=== PATIENT | female | born 1935 | race Caucasian/White ===

== ENCOUNTER 2016-06-06 07:00 | Emergency (ER) | payer MEDICARE, MEDICAID ==
[2016-06-06 08:13] VITALS: BP 140/56
[2016-06-06] MEDS ORDERED: Sodium Chloride 0.9% 1,000 ML IV STA (08:14)
[2016-06-06] MEDS ORDERED: Sodium Chloride 0.9% 5 ML Syringe FLUSH PRN (08:14)
--- NOTE | 2016-06-06 08:30 | EDM.PDOC ---
ED HPI GI/ABDOMINAL - General Chief Complaint: Abdominal Pain Stated Complaint: abd distention Time Seen by Provider: 06/06/16 07:50 Source of Information: Reports: [facility] records History Limitations: Reports: Altered mental status (OF CHRONIC NATURE) - History of Present Illness INITIAL COMMENTS - FREE TEXT/NARRATIVE: PER EMS AND CORRECTION RECORDS, PT HAS HAD ABD PAIN AND DISTENSION FOR 2 DAYS. NO VOMITING, BOWEL CHANGES, OR BLOOD IN STOOL. PT HAS CHRONIC CONFUSED STATE AND UNABLE TO VERBALIZE CONDITION Location: generalized Severity: mild Associated Symptoms (-Female): Reports: denies other symptoms - Related Data Allergies/ADRs: Allergies Allergy/AdvReac Type Severity Reaction Status Date / Time INDU Inhibitors Allergy Cannot Verified 06/06/16 08:18 Remember grapefruit Allergy Cannot Verified 06/06/16 08:18 Remember Home Meds: Home Meds Acetaminophen 325 mg PO BID 10/22/14 [History] Acetaminophen [Pain Relief] 650 mg PO Q6H PRN 10/22/14 [History] Bisacodyl [Dulcolax] 10 mg RECTAL DAILY PRN 10/22/14 [History] Cholecalciferol (Vitamin D3) [Vitamin D3] 2,000 unit PO DAILY 10/22/14 [History] Donepezil HCl 10 mg PO DAILY 10/22/14 [History] Magnesium Hydroxide [Milk of Magnesia] 30 ml PO DAILY PRN 10/22/14 [History] Aspirin 1 tab PO DAILY 06/06/16 [History] Loratadine 10 mg PO DAILY 06/06/16 [History] Menthol/Camphor [Sarna Anti-Itch] 1 applic TOP BID 06/06/16 [History] Sennosides [Senna] 1 tab PO BID 06/06/16 [History] Past Medical History Other Musculoskeletal History: muscle weakness (myasthenia) Social & Family History - Tobacco Use Smoking Status *Q: Current Status Unknown Second Hand Smoke Exposure: No - Recreational Drug Use Recreational Drug Use: No ED ROS GENERAL - Review of Systems Review Of Systems: ROS reveals no pertinent complaints other than HPI. Constitutional: Reports: no symptoms HEENT: Reports: No symptoms Respiratory: Reports: No Symptoms Cardiovascular: Reports: No symptoms Endocrine: Reports: no symptoms GI/Abdominal: Reports: Abdominal pain, Distension : Reports: no symptoms Musculoskeletal: Reports: no symptoms Skin: Reports: no symptoms Neurological: Reports: Confusion (OF CHRONIC NATURE), Pre-Existing Deficit Psychiatric: Reports: No symptoms Hematologic/Lymphatic: Reports: no symptoms Immunologic: Reports: no symptoms ED EXAM, GI/ABD - Physical Exam Exam: See Below Exam Limited By: Altered mental status (CHRONIC) General Appearance: alert, WD/WN, no apparent distress Eyes: bilateral: normal appearance Throat/Mouth: Normal inspection, Normal oropharynx, No airway compromise Head: atraumatic, normocephalic Respiratory/Chest: no respiratory distress, lungs clear, normal breath sounds, no accessory muscle use Cardiovascular: regular rate, rhythm, no murmur GI/Abdominal: soft, non tender, no organomegaly, no distention, no abnormal bruit, no mass, hyperactive bowel sounds Back Exam: No: CVA tenderness (L), CVA tenderness (R) Extremities: normal inspection, no pedal edema Neurological: confused, disoriented Psychiatric: flat affect Skin Exam: Warm, Dry, Intact, Normal color, No rash Lymphatic: no adenopathy Course - Vital Signs Last Recorded V/S: Last Vital Signs Temp 98.5 F 06/06/16 08:09 Pulse 76 06/06/16 08:09 Resp 10 L 06/06/16 08:09 BP 140/56 L 06/06/16 08:09 Pulse Ox 95 06/06/16 08:09 - Orders/Labs/Meds Orders: Active Orders 24 hr Category Date Time Status Peripheral IV Care [RC] . DIRECTED Care 06/06/16 08:15 Ordered Abdomen Pelvis w Cont [CT] Stat Exams 06/06/16 08:14 Ordered CBC WITH AUTO DIFF [HEME] Stat Lab 06/06/16 08:14 Ordered COMPREHENSIVE METABOLIC PN,CMP [CHEM] Stat Lab 06/06/16 08:14 Ordered LIPASE [CHEM] Stat Lab 06/06/16 08:14 Ordered UA W/MICROSCOPIC [URIN] Stat Lab 06/06/16 08:14 Uncollected Sodium Chloride 0.9% [Normal Saline] 1,000 ml Med 06/06/16 08:14 Ordered IV .BOLUS Sodium Chloride 0.9% [Syrex Flush] Med 06/06/16 08:14 Ordered 5 ml FLUSH Q8HR PRN Peripheral IV Insertion Adult [OM.PC] Stat Oth 06/06/16 08:14 Ordered Saline Lock Insert [OM.PC] Stat Oth 06/06/16 08:14 Ordered Medication Orders Sodium Chloride (Normal Saline) 1,000 mls @ 1,000 mls/hr IV .BOLUS STA Stop: 06/06/16 09:13 Sodium Chloride (Syrex Flush) 5 ml FLUSH Q8HR PRN PRN Reason: Keep Vein Open Meds: Medications Generic Name Dose Route Start Last Admin Trade Name Freq PRN Reason Stop Dose Admin Sodium Chloride 1,000 mls @ 1,000 mls/hr 06/06/16 08:14 Normal Saline IV 06/06/16 09:13 .BOLUS STA Sodium Chloride 5 ml 06/06/16 08:14 Syrex Flush FLUSH Q8HR PRN Keep Vein Open - Radiology Interpretation Free Text/Narrative:: ct abd/pelvis shows diverticulosis inflammatory changes, WITHOUT VASCULAR COMPROMISE CT Results Date: 06/06/16 - Re-Assessments/Exams Free Text/Narrative Re-Assessment/Exam: 06/06/16 10:27 PT AFEBRILE, NONTOXIC APPEARING, VSS, NO DISCOMFORT. DISCUSSED CASE WITH KASSIE AND SUGGESTED MEDICATION HERE AND F/U AT CLINIC ON Wednesday06/06/16 10:36 CIPRO / FLAGYL / REGLAN MEDICATION AND INSTRUCTIONS SENT WITH PT Departure - Departure Time of Disposition: 10:34 Disposition: DC/Tfer to Medicaid Nur Fac 64 Condition: good Clinical Impression: Colitis Instructions: Colitis Forms: ED Department Discharge Additional Instructions: FOLLOW UP AT [facility] ON WEDNESDAY - My Orders Last 24 Hours: My Active Orders 06/06/16 08:14 Abdomen Pelvis w Cont [CT] Stat CBC WITH AUTO DIFF [HEME] Stat COMPREHENSIVE METABOLIC PN,CMP [CHEM] Stat LIPASE [CHEM] Stat UA W/MICROSCOPIC [URIN] Stat Sodium Chloride 0.9% [Normal Saline] 1,000 ml IV .BOLUS Sodium Chloride 0.9% [Syrex Flush] 5 ml FLUSH Q8HR PRN Peripheral IV Insertion Adult [OM.PC] Stat Saline Lock Insert [OM.PC] Stat 06/06/16 08:15 Peripheral IV Care [RC] . DIRECTED - Assessment/Plan Last 24 Hours: My Active Orders 06/06/16 08:14 Abdomen Pelvis w Cont [CT] Stat CBC WITH AUTO DIFF [HEME] Stat COMPREHENSIVE METABOLIC PN,CMP [CHEM] Stat LIPASE [CHEM] Stat UA W/MICROSCOPIC [URIN] Stat Sodium Chloride 0.9% [Normal Saline] 1,000 ml IV .BOLUS Sodium Chloride 0.9% [Syrex Flush] 5 ml FLUSH Q8HR PRN Peripheral IV Insertion Adult [OM.PC] Stat Saline Lock Insert [OM.PC] Stat 06/06/16 08:15 Peripheral IV Care [RC] . DIRECTED Assessment:: DIVERTICULOSIS Plan: RETURN TO NURSING FACILITY AND F/U AT CLINIC ON WEDNESDAY
[2016-06-06] MEDS ORDERED: Iopamidol 612 MG/ML 75 ML Bottle IV ONE (09:00)
[2016-06-06] MEDS ORDERED: Sodium Chloride 0.9% 50 ML SDV IV ONE (09:00)
[2016-06-06] MEDS ORDERED: Ciprofloxacin 500 MG Tab PO ONE ×2 (10:28→10:34)
[2016-06-06] MEDS ORDERED: metroNIDAZOLE 500 MG Tab PO ONE ×2 (10:28→10:34)
[2016-06-06] MEDS ORDERED: Metoclopramide 10 MG/2 ML SDV IVPUSH ONE (10:28)
[2016-06-06] MEDS ORDERED: Metoclopramide 5 MG Tab PO ONE (10:34)
[2016-06-10] MEDS ORDERED: Iopamidol 612 MG/ML 75 ML Bottle IV ONE (09:07)
[2016-06-10] MEDS ORDERED: Sodium Chloride 0.9% 50 ML SDV FLUSH SCH (09:15)
== END 2016-06-06 11:40 ==
LOC: KA.ED 07:00
DX: K52.9 Noninfective gastroenteritis and colitis, unspecified (principal); Z91.018 Allergy to other foods; Z79.899 Other long term (current) drug therapy; Z79.82 Long term (current) use of aspirin
CPT/HCPCS: 74177; 80053; 81001; 83690; 85025; 87086; 96374; 99285; A9270; J2765; J7030; 99283; Q9967

== ENCOUNTER 2016-07-08 20:05 | Observation (INO) | payer MEDICARE, MEDICAID ==
--- NOTE | 2016-07-08 20:57 | EDM.PDOC ---
ED HPI GENERAL MEDICAL PROBLEM - General Chief Complaint: General Stated Complaint: profuse diarrhea Time Seen by Provider: 07/08/16 20:40 Source of Information: Reports: EMS Notes Reviewed, Long Term Records History Limitations: Reports: Other (PT HAS H/O DEMENTIA AND IS NON- COMMUNICATIVE) - History of Present Illness INITIAL COMMENTS - FREE TEXT/NARRATIVE: PER NURSING FACILITY PT WAS FOUND TO HAVE A DISTENDED ABDOMEN AND GIVEN ENEMA AND MOM THIS MORNING. SYMPTOMS PERSISTED SO EMS WAS CALLED FOR TRANSPORT. PT NON -COMMUNICATIVE BUT NOT DISPLAYING EVIDENCE OF PAIN. Onset: Today, Gradual Onset Date: 07/08/16 Location: Reports: Abdomen Improves with: Reports: None Worsens with: Reports: None Associated Symptoms: Reports: No Other Symptoms - Related Data Allergies Allergy/AdvReac Type Severity Reaction Status Date / Time INDU Inhibitors Allergy Cannot Verified 07/08/16 20:06 Remember grapefruit Allergy Cannot Verified 07/08/16 20:06 Remember Home Meds: Home Meds Acetaminophen 325 mg PO TID 10/22/14 [History] Acetaminophen [Pain Relief] 650 mg PO Q6H PRN 10/22/14 [History] Bisacodyl [Dulcolax] 10 mg RECTAL DAILY PRN 10/22/14 [History] Cholecalciferol (Vitamin D3) [Vitamin D3] 2,000 unit PO DAILY 10/22/14 [History] Donepezil HCl 10 mg PO DAILY 10/22/14 [History] Magnesium Hydroxide [Milk of Magnesia] 30 ml PO DAILY PRN 10/22/14 [History] Aspirin 1 tab PO DAILY 06/06/16 [History] Loratadine 10 mg PO DAILY 06/06/16 [History] Menthol/Camphor [Sarna Anti-Itch] 1 applic TOP BID 06/06/16 [History] Sennosides [Senna] 1 tab PO BID 06/06/16 [History] Past Medical History Gastrointestinal History: Reports: Other (See Below) Other Gastrointestinal History: abdominal pain and distention x 2 days Musculoskeletal History: Reports: Osteoarthritis Other Musculoskeletal History: muscle weakness (myasthenia) Neurological History: Reports: Alzheimers Disease Psychiatric History: Reports: Alzheimers Disease, Dementia Endocrine/Metabolic History: Reports: Diabetes, Type II Social & Family History - Family History Family Medical History: Noncontributory - Tobacco Use Smoking Status *Q: Current Status Unknown Second Hand Smoke Exposure: No - Recreational Drug Use Recreational Drug Use: No ED ROS GENERAL - Review of Systems Review Of Systems: ROS reveals no pertinent complaints other than HPI. Constitutional: Reports: No Symptoms HEENT: Reports: No Symptoms Respiratory: Reports: No Symptoms Cardiovascular: Reports: No Symptoms Endocrine: Reports: No Symptoms GI/Abdominal: Reports: Constipation, Distension : Reports: No Symptoms Musculoskeletal: Reports: No Symptoms Skin: Reports: No Symptoms Neurological: Reports: Confusion (OF CHRONIC NATURE) Psychiatric: Reports: No Symptoms Hematologic/Lymphatic: Reports: No Symptoms Immunologic: Reports: No Symptoms ED EXAM, GENERAL - Physical Exam Exam: See Below Exam Limited By: Other (DEMENTIA) General Appearance: Alert, WD/WN, No Apparent Distress Eye Exam: Bilateral Eye: Normal Inspection Throat/Mouth: Normal Inspection, Normal Oropharynx, No Airway Compromise Head: Atraumatic, Normocephalic Respiratory/Chest: No Respiratory Distress, Lungs Clear, Normal Breath Sounds Cardiovascular: Regular Rate, Rhythm, No Murmur GI/Abdominal: Soft, Distended, Abnormal Bowel Sounds (HYPERACTIVE) Extremities: Normal Inspection Neurological: Alert, Confused (OF CHRONIC NATURE), Disoriented Psychiatric: Flat Affect Skin Exam: Warm, Dry, Intact, Normal Color, No Rash Lymphatic: No Adenopathy Course - Orders/Labs/Meds Orders: Active Orders 24 hr Category Date Time Status KUB [Abdomen 1V Flat] [CR] Stat Exams 07/08/16 20:51 Ordered CBC W/O DIFF,HEMOGRAM [HEME] Stat Lab 07/08/16 20:38 Ordered CMP [COMPREHENSIVE METABOLIC PN,CMP] [CHEM] Stat Lab 07/08/16 20:42 Ordered UA W/MICROSCOPIC [URIN] Stat Lab 07/08/16 20:42 Uncollected Sodium Chloride 0.9% [Syrex Flush] Med 07/08/16 20:43 Active 5 ml FLUSH Q8HR PRN Saline Lock Insert [OM.PC] Routine Oth 07/08/16 20:43 Ordered Medication Orders Sodium Chloride (Syrex Flush) 5 ml FLUSH Q8HR PRN PRN Reason: Keep Vein Open Meds: Medications Generic Name Dose Route Start Last Admin Trade Name Freq PRN Reason Stop Dose Admin Sodium Chloride 5 ml 07/08/16 20:43 Syrex Flush FLUSH Q8HR PRN Keep Vein Open - Re-Assessments/Exams Free Text/Narrative Re-Assessment/Exam: 07/08/16 21:41 PT AFEBRILE, NONTOXIC APPEARING. DISCUSSED CASE WITH DR ANDREWS, WILL ADMIT TO OBS AND FOLLOW Departure - Departure Time of Disposition: 21:42 Disposition: Refer to Observation Condition: fair Clinical Impression: Ileus Constipation Qualifiers: Constipation type: unspecified constipation type Qualified Code(s): K59.00 - Constipation, unspecified - Discharge Information Forms: ED Department Discharge - My Orders Last 24 Hours: My Active Orders 07/08/16 20:38 CBC W/O DIFF,HEMOGRAM [HEME] Stat 07/08/16 20:42 CMP [COMPREHENSIVE METABOLIC PN,CMP] [CHEM] Stat UA W/MICROSCOPIC [URIN] Stat 07/08/16 20:43 Sodium Chloride 0.9% [Syrex Flush] 5 ml FLUSH Q8HR PRN Saline Lock Insert [OM.PC] Routine 07/08/16 20:51 KUB [Abdomen 1V Flat] [CR] Stat - Assessment/Plan Last 24 Hours: My Active Orders 07/08/16 20:38 CBC W/O DIFF,HEMOGRAM [HEME] Stat 07/08/16 20:42 CMP [COMPREHENSIVE METABOLIC PN,CMP] [CHEM] Stat UA W/MICROSCOPIC [URIN] Stat 07/08/16 20:43 Sodium Chloride 0.9% [Syrex Flush] 5 ml FLUSH Q8HR PRN Saline Lock Insert [OM.PC] Routine 07/08/16 20:51 KUB [Abdomen 1V Flat] [CR] Stat Assessment:: ILEUS Plan: ADMIT TO OBS FOR DR ANDREWS
[2016-07-08 21:15] LABS: CHLORIDE,CL 101 mmol/L (98-115); SODIUM,NA 140 mmol/L (136-145)
[2016-07-08] MEDS ORDERED: Sodium Chloride 0.9% 1,000 ML IV ONE (21:40)
[2016-07-08] MEDS: Sodium Chloride 0.9% 5 ML Syringe FLUSH PRN (22:39)
[2016-07-09] MEDS ORDERED: Sodium Phosphate,Monobasic/Sodium Phosphate,Dibasic Enema 133 ML Bottle RECTAL PRN (10:00)
[2016-07-09] MEDS ORDERED: Acetaminophen 325 MG Tab PO PRN ×2 (10:00→12:00)
[2016-07-09] MEDS ORDERED: Bisacodyl 10 MG Supp RECTAL PRN (10:00)
[2016-07-09] MEDS ORDERED: Magnesium Hydroxide 400 MG/5 ML Susp 30 ML Cup PO PRN (10:00)
[2016-07-09] MEDS ORDERED: Sodium Phosphate,Monobasic/Sodium Phosphate,Dibasic Enema 133 ML Bottle RECTAL ONE (10:02)
[2016-07-09] MEDS: Dextrose 5%-0.9% NaCl 1,000 ML IV SCH ×2 (11:18→21:45)
[2016-07-09] MEDS: Sodium Chloride 0.9% 5 ML Syringe FLUSH PRN (11:18)
[2016-07-09] MEDS: Aspirin 81 MG Tab.Chew PO SCH (12:43)
[2016-07-09] MEDS: Metoclopramide 10 MG/2 ML SDV IVPUSH SCH ×3 (12:43→22:53)
[2016-07-09] MEDS: Cholecalciferol (Vitamin D3) 1,000 Unit Tab PO SCH (12:43)
[2016-07-09] MEDS: Donepezil 10 MG Tab PO SCH (12:43)
[2016-07-09] MEDS: Acetaminophen 325 MG Tab PO SCH ×2 (12:54→18:09)
[2016-07-09] MEDS ORDERED: Loratadine 10 MG Tab PO SCH (18:00)
[2016-07-09] MEDS ORDERED: MENTHOL TOP SCH (21:00)
[2016-07-09] MEDS ORDERED: CAMPHOR TOP SCH (21:00)
[2016-07-10] MEDS: Metoclopramide 10 MG/2 ML SDV IVPUSH SCH ×2 (05:26→13:38)
[2016-07-10 05:31] VITALS: BP 141/60
[2016-07-10] MEDS: Dextrose 5%-0.9% NaCl 1,000 ML IV SCH (06:34)
[2016-07-10] MEDS: Acetaminophen 325 MG Tab PO SCH (08:14)
[2016-07-10] MEDS: Donepezil 10 MG Tab PO SCH (08:14)
[2016-07-10] MEDS: Aspirin 81 MG Tab.Chew PO SCH (08:14)
[2016-07-10] MEDS: Cholecalciferol (Vitamin D3) 1,000 Unit Tab PO SCH (08:15)
--- NOTE | 2016-07-10 08:34 | HP ---
PATIENT PROFILE: This is an 81-year-old patient who is a resident of [facility] here in [facility]. Nursing staff at the facility had found the patient to have a distended abdomen. She was given a Fleet enema at the snf along with some milk of magnesia, did not help with her constipation. The patient does have a history of severe dementia and is noncommunicative. Ambulance was called, the patient was transferred to the emergency room for further evaluation and treatment. The patient was displaying no evidence of pain. In the emergency room, she was given IV bolus of normal saline along with a Fleet enema. PAST MEDICAL HISTORY: She has history of severe dementia, some allergies, and chronic constipation. MEDICATIONS: At the snf, she was taking senna one tablet twice a day. She had a Fleet enema ordered as needed. She got some Sarna cream for itching, she could have twice a day. She has milk of magnesia as needed. She takes loratadine 10 mg daily, Aricept 10 mg daily, vitamin D3 at 2000 units daily, Dulcolax suppository as needed, aspirin one tablet daily and Tylenol as needed. ALLERGIES: She is allergic to INDU inhibitors and grape fruit. SOCIAL PERSONAL HISTORY: The patient lives at [facility]. REVIEW OF SYSTEMS: The patient is not communicative, but did not display any signs of pain. No fever. PHYSICAL EXAMINATION: GENERAL: This is an elderly white female, in no acute distress. VITAL SIGNS: On admission, blood pressure is 110/33, pulse was 78, temperature was 98.3, she weighs 169 pounds, respiratory rate was 20, oxygen saturations were 93% on room air. HEENT: Head is normocephalic. EOMs are intact. Nose is clear. No pharyngeal erythema noted. NECK: Supple. No JVD. Trachea is midline. LUNGS: Sounds are clear throughout lung elizalde. CARDIAC: Regular rate and rhythm. No murmurs identified. ABDOMEN: Large, distended, hypoactive bowel sounds, tympanic sounds. EXTREMITIES: Full range of motion. No joint effusions noted. NEUROLOGIC: The patient is noncommunicative, does react to pain. DIAGNOSTIC: The patient did have an abdominal x-ray obtained one-view in the emergency room, which the impression reads per Radiology, there is gaseous distention of the colon with multiple mildly dilated air-filled loops of small bowel, consider generalized ileus. The patient's lab work that was also obtained in the emergency room. CBC showed a white count slightly elevated at 12.0, hemoglobin 12.9. Chemistry panel was unremarkable except for glucose elevated at 176. The patient's GFR is 53, which is the patient's baseline. Urinalysis that was obtained showed trace of blood, some protein, rare bacteria, moderate amount of mucus. IMPRESSION/PLAN: 1. Fecal impaction/ileus. Plan: The patient did receive a Fleet enema in the emergency room. We are going to give her another Fleet enema today. We are going to start the patient on Reglan 10 mg IV every 6 hours. We will continue with senna one tablet twice a day. We will give the patient some IV fluids D5 normal saline at 100 mL/h. The patient has been incontinent of stool with brief in place. 2. Severe dementia, noncommunicative. Plan: continue with Aricept 10 mg daily. 3. History of allergies. Plan: Continue with Claritin 10 mg daily. She does have itchiness to her skin, we will continue with Sarna cream if she displays any signs of itchiness. Overall plan, if the patient does have large results with bowel movements from Fleet enema, and bowel sounds return to active and abdomen is softer on exam, we may consider sending the patient back to snf tomorrow. /[id number]/MODL
--- NOTE | 2016-07-13 07:50 | DISCH ---
ADMITTING DIAGNOSIS: Fecal impaction, ileus. FINAL DIAGNOSIS: Ileus, resolved. BRIEF HISTORY AND ESSENTIAL FINDINGS: The patient has a severe history of dementia, and she is noncommunicative, and she lives at the [facility]. The nursing staff at the [facility] had noticed that she was getting very distended, not having bowel movements. They gave her a Fleet enema at the [facility] along with some milk of magnesia. This did not per help with patient's constipation. She was sent to the emergency room here at the [facility]. She was given IV fluid bolus of normal saline in the emergency room along with another Fleet enema. She then was admitted for further evaluation and treatment at that time. SIGNIFICANT LABS XRAYS AND CONSULTATION FINDINGS: The patient's abdominal x-ray one view that was obtained upon admission. The impression reads as follows per radiology: There is gaseous distention of the colon with multiple mildly dilated air-filled loops of small bowel, consider generalized ileus. That was read by Dr. Lewis Mcarthur in Radiology. The patient's lab work on admission: CBC showed a white count slightly elevated at 12.0, hemoglobin 12.9, platelet count at 235. The patient's chemistry panel is unremarkable except for glucose was elevated at 167, otherwise it was unremarkable. The patient's urinalysis that was obtained on admission did show trace amount of blood, moderate mucus, otherwise unremarkable. COURSE IN HOSPITAL WITH COMPLICATIONS IF ANY: The patient was given Reglan 5 mg IV every 6 hours along with another Fleet enema. She was given IV hydration. On day of discharge, she was sitting up very alert, eating, bowel sounds were active. Abdomen was soft to palpation. The patient did have a large amount of bowel movements throughout the hospital stay. CONDITION TREATMENT AND FINAL DISPOSITION ON DISCHARGE AND PROGNOSIS: Condition is stable. Final disposition would be to return to [facility]. IMPRESSION AND PLAN: 1. Fecal impaction/ileus. Plan: I am going to send the patient back to the [facility] with daily medications of Hafsa-Colace one tab twice a day along with MiraLAX 17 g daily along with Reglan 5 mg orally twice a day. She can continue to have the Dulcolax suppository as needed along with milk of magnesia and a Fleet enema as needed. 2. Severe dementia and noncommunicative. Plan: Continue with Aricept 10 mg daily. 3. History of allergies. Plan: Continue with Claritin 10 mg daily and Sarna cream as needed for itchiness. Overall plan: The patient has been having good results with large amount of bowel movements throughout the hospital stay. Abdomen is soft. Bowel sounds present x4, non-firm, nondistended. The patient will return to [facility] today. /[id number]/MODL
== END 2016-07-10 11:40 ==
LOC: KA.ED 20:05 → KA.MS 20:27 → UNDOADMOB 20:27 → KA.MS 21:48
PROVIDERS: ADMIT Internal Medicine; ATTEND Internal Medicine
DX: K56.41 Fecal impaction (principal); K56.7 Ileus, unspecified; F03.90 Unspecified dementia, unspecified severity, without behavioral disturbance, psychotic disturbance, mood disturbance, and anxiety; E11.9 Type 2 diabetes mellitus without complications; Z88.8 Allergy status to other drugs, medicaments and biological substances; Z91.018 Allergy to other foods; Z79.82 Long term (current) use of aspirin; Z79.899 Other long term (current) drug therapy
CPT/HCPCS: 36415; 74000; 80053; 81001; 85025; 96361; 96374; 96376; 99285; A9270; G0378; J2765; J7030; J7042

== ENCOUNTER 2016-07-14 18:20 | Inpatient (IN) | payer MEDICARE, MEDICAID ==
[2016-07-14] MEDS ORDERED: Ondansetron 4 MG/2 ML SDV IVPUSH ONE (19:00)
[2016-07-14] MEDS ORDERED: Sodium Chloride 0.9% 500 ML IV SCH (19:00)
--- NOTE | 2016-07-14 19:29 | EDM.PDOC ---
ED HPI GENERAL MEDICAL PROBLEM - General Chief Complaint: Abdominal Pain Stated Complaint: ABD PAIN, NAUSEA, VOMITING Time Seen by Provider: 07/14/16 18:45 Source of Information: Reports: Family, Correction Records History Limitations: Reports: No Limitations - History of Present Illness INITIAL COMMENTS - FREE TEXT/NARRATIVE: 81 yo wf presents to hospital for an outpatient CT of abd/pelvis as prescribed by her PCP. Pt has been complaining of abdominal pain, vomiting and distended abdomen x 2 days. Pt with PMH of bowel obstruction and chronic loose stools. Pt has advanced dementia and is unable to communicate. Pt's daughter is at bedside and able to provide a good history. Onset Date: 07/12/16 Duration: Day(s): (2) Location: Reports: Abdomen Severity: Moderate Improves with: Reports: None Worsens with: Reports: None Associated Symptoms: Reports: Nausea/Vomiting - Related Data Allergies Allergy/AdvReac Type Severity Reaction Status Date / Time INDU Inhibitors Allergy Cannot Verified 07/14/16 19:25 Remember grapefruit Allergy Cannot Verified 07/14/16 19:25 Remember Home Meds: Home Meds Acetaminophen 650 mg PO TID@0800,1200,1800 PRN 10/22/14 [History] Acetaminophen [Pain Relief] 650 mg PO Q6H PRN 10/22/14 [History] Bisacodyl [Dulcolax] 10 mg RECTAL DAILY PRN 10/22/14 [History] Cholecalciferol (Vitamin D3) [Vitamin D3] 2,000 unit PO DAILY 10/22/14 [History] Donepezil HCl 10 mg PO DAILY 10/22/14 [History] Magnesium Hydroxide [Milk of Magnesia] 30 ml PO DAILY PRN 10/22/14 [History] Aspirin 81 mg PO DAILY 06/06/16 [History] Loratadine 10 mg PO DAILY 06/06/16 [History] Menthol/Camphor [Sarna Anti-Itch] 1 applic TOP BID 06/06/16 [History] Sennosides [Senna] 1 tab PO BID 06/06/16 [History] Phosphate Enema 18 ml RECTAL DAILY PRN 07/08/16 [History] Metoclopramide [Reglan] 5 mg PO BID #30 sdv 07/10/16 [Rx] Polyethylene Glycol 3350 [MiraLAX] 17 gm PO DAILY #30 packet 07/10/16 [Rx] Past Medical History Gastrointestinal History: Reports: Chronic Constipation, Other (See Below) Other Gastrointestinal History: abdominal pain and distention x 2 days Genitourinary History: Reports: Urinary Incontinence Musculoskeletal History: Reports: Osteoarthritis Other Musculoskeletal History: muscle weakness (myasthenia). transfers with EZ- stand Neurological History: Reports: Alzheimers Disease Psychiatric History: Reports: Alzheimers Disease, Dementia, Depression Endocrine/Metabolic History: Reports: Diabetes, Type II Social & Family History - Family History Family Medical History: Noncontributory - Tobacco Use Smoking Status *Q: Current Status Unknown Second Hand Smoke Exposure: No - Recreational Drug Use Recreational Drug Use: No ED ROS GENERAL - Review of Systems Review Of Systems: See Below Constitutional: Reports: No Symptoms HEENT: Reports: No Symptoms Respiratory: Reports: No Symptoms Cardiovascular: Reports: No Symptoms Endocrine: Reports: No Symptoms GI/Abdominal: Reports: Abdominal Pain, Diarrhea, Vomiting : Reports: No Symptoms Musculoskeletal: Reports: No Symptoms Skin: Reports: No Symptoms Neurological: Reports: No Symptoms Psychiatric: Reports: No Symptoms Hematologic/Lymphatic: Reports: No Symptoms Immunologic: Reports: No Symptoms ED EXAM, GI/ABD - Physical Exam Exam: See Below Exam Limited By: Altered Mental Status General Appearance: Alert, Mild Distress Head: Atraumatic, Normocephalic Neck: Normal Inspection, Supple, Non-Tender, Full Range of Motion Respiratory/Chest: No Respiratory Distress, Lungs Clear, Normal Breath Sounds, No Accessory Muscle Use, Chest Non-Tender Cardiovascular: Normal Peripheral Pulses, Regular Rate, Rhythm, No Edema, No Gallop, No JVD, No Murmur, No Rub GI/Abdominal: Hyperactive Bowel Sounds, Tympanic Bowel Sounds, Tenderness, Distention Back Exam: Normal Inspection, Full Range of Motion, NT Extremities: Normal Inspection, Normal Range of Motion, Non-Tender, Normal Capillary Refill, No Pedal Edema Neurological: Alert, No Motor/Sensory Deficits Psychiatric: Flat Affect Skin Exam: Warm, Dry, Intact, Normal Color, No Rash Lymphatic: No Adenopathy Course - Orders/Labs/Meds Orders: Active Orders 24 hr Category Date Time Status Patient Status Manage Transfer [TRANSFER] Routine ADT 07/14/16 19:34 Ordered Patient Status [ADT] Routine ADT 07/14/16 19:35 Ordered Oxygen Therapy [RC] PRN Care 07/14/16 19:35 Active Up to Chair [RC] ASDIRECTED Care 07/14/16 19:35 Active VTE/DVT Education [RC] PER UNIT ROUTINE Care 07/14/16 19:35 Active Vital Signs [RC] Q4H Care 07/14/16 19:35 Active Nothing per Oral Now Diet [DIET] Diet 07/15/16 Breakfast Active CBC WITH AUTO DIFF [HEME] AM Lab 07/15/16 05:11 Ordered COMPREHENSIVE METABOLIC PN,CMP [CHEM] AM Lab 07/15/16 05:11 Ordered HYDROmorphone [Dilaudid] Med 07/14/16 19:35 Active 0.5 mg IVPUSH Q2H PRN Ondansetron [Zofran] Med 07/14/16 19:35 Active 4 mg IV Q6H PRN Sodium Chloride 0.9% [Normal Saline] 1,000 ml Med 07/14/16 19:45 Active IV ASDIRECTED Sodium Chloride 0.9% [Normal Saline] 500 ml Med 07/14/16 19:00 Active IV .BOLUS cefTRIAXone [Rocephin] Med 07/14/16 20:00 Ordered 1 gm IVPUSH Q24H Nasogastric Orogastric Tube Insertion [OM.PC] Routine Oth 07/14/16 19:31 Ordered Resuscitation Status Routine Resus Stat 07/14/16 19:35 Ordered Medication Orders Ceftriaxone Sodium (Rocephin) 1 gm IVPUSH Q24H JAMES Hydromorphone HCl (Dilaudid) 0.5 mg IVPUSH Q2H PRN PRN Reason: Pain (severe 7-10) Sodium Chloride (Normal Saline) 500 mls @ 999 mls/hr IV .BOLUS JAMES Last Admin: 07/14/16 19:12 Dose: 999 mls/hr Sodium Chloride (Normal Saline) 1,000 mls @ 125 mls/hr IV ASDIRECTED JAMES Ondansetron HCl (Zofran) 4 mg IV Q6H PRN PRN Reason: Nausea/Vomiting Labs: Laboratory Tests 07/14/16 07/14/16 07/14/16 Range/Units 19:00 19:10 19:10 WBC 10.9 H (5.0-10.0) 10^3/uL RBC 4.26 (3.80-5.50) 10^6/uL Hgb 12.7 (12.0-16.0) g/dL Hct 38.3 (37.0-47.0) % MCV 89.9 (82.0-92.0) fL MCH 30.0 (27.0-31.0) pg MCHC 33.3 (32.0-36.0) g/dL RDW 13.0 (11.5-14.5) % Plt Count 241 (150-300) 10^3/uL MPV 8.4 (7.4-10.4) fL Neut % (Auto) 71.9 H (50.0-70.0) % Lymph % (Auto) 14.7 L (20.0-40.0) % [place] % (Auto) 10.6 H (2.0-8.0) % Eos % (Auto) 2.2 (1.0-3.0) % Baso % (Auto) 0.6 (0.0-1.0) % Neut # (Auto) 7.8 H (2.5-7.0) 10^3/uL Lymph # (Auto) 1.6 (1.0-4.0) 10^3/uL [place] # (Auto) 1.2 H (0.1-0.8) 10^3/uL Eos # (Auto) 0.2 (0.1-0.3) 10^3/uL Baso # (Auto) 0.1 (0.0-0.1) 10^3/uL Sodium 140 (136-145) mmol/L Potassium 3.3 (3.3-5.3) mmol/L Chloride 101 (98-115) mmol/L Carbon Dioxide 26.6 (21.0-32.0) mmol/L BUN 12 (6-25) mg/dL Creatinine 1.05 (0.51-1.17) mg/dL Est Cr Clr Drug Dosing TNP Estimated GFR (MDRD) 50 mL/min Glucose 165 H (70-110) mg/dL Calcium 9.2 (8.7-10.3) mg/dL Total Bilirubin 0.5 (0.2-1.0) mg/dL AST 17 (15-37) U/L ALT 24 (12-78) U/L Alkaline Phosphatase 55 (46-116) IU/L Total Protein 7.9 (6.4-8.2) g/dL Albumin 3.61 (3.00-4.80) g/dL Lipase 255 (73-393) U/L Specimen Type [place] Urine Color Yellow (YELLOW) Urine Appearance Cloudy H (CLEAR) Urine pH 6.0 (5.0-9.0) Ur Specific [place] 1.015 (1.005-1.030) Urine Protein 30 H (NEGATIVE) mg/dL Urine Glucose (UA) Negative (NEGATIVE) mg/dL Urine Ketones Trace H (NEGATIVE) mg/dL Urine Occult Blood Trace-intact H (NEGATIVE) Urine Nitrite Negative (NEGATIVE) Urine Bilirubin Negative (NEGATIVE) Urine Urobilinogen 0.2 (0.2-1.0) E.U./dL Ur Leukocyte Esterase Negative (NEGATIVE) Urine RBC 5-10 H /HPF Urine WBC 5-10 H /HPF Urine Bacteria Moderate H (NONE TO FEW) /HPF Meds: Medications Generic Name Dose Route Start Last Admin Trade Name Freq PRN Reason Stop Dose Admin Ceftriaxone Sodium 1 gm 07/14/16 20:00 Rocephin IVPUSH Q24H JAMES Hydromorphone HCl 0.5 mg 07/14/16 19:35 Dilaudid IVPUSH Q2H PRN Pain (severe 7-10) Sodium Chloride 500 mls @ 999 mls/hr 07/14/16 19:00 07/14/16 19:12 Normal Saline IV 999 mls/hr .BOLUS JAMES Administration Sodium Chloride 1,000 mls @ 125 mls/hr 07/14/16 19:45 Normal Saline IV ASDIRECTED JAMES Ondansetron HCl 4 mg 07/14/16 19:35 Zofran IV Q6H PRN Nausea/Vomiting Discontinued Medications Generic Name Dose Route Start Last Admin Trade Name Freq PRN Reason Stop Dose Admin Hydromorphone HCl 0.5 mg 07/14/16 19:33 Dilaudid IVPUSH 07/14/16 19:34 ONETIME ONE Ondansetron HCl 4 mg 07/14/16 19:00 07/14/16 19:24 Zofran IVPUSH 07/14/16 19:01 4 mg ONETIME ONE Administration - Radiology Interpretation Free Text/Narrative:: CT Abd/Pelvis- ileus with signs of bowel obstruction Departure - Departure Time of Disposition: 19:51 Disposition: Admitted As Inpatient 64 Condition: poor Clinical Impression: Ileus Urinary tract infection Qualifiers: Urinary tract infection type: acute cystitis Hematuria presence: without hematuria Qualified Code(s): N30.00 - Acute cystitis without hematuria Abdominal pain Qualifiers: Abdominal location: generalized Qualified Code(s): R10.84 - Generalized abdominal pain - Discharge Information - My Orders Last 24 Hours: My Active Orders 07/14/16 19:00 Sodium Chloride 0.9% [Normal Saline] 500 ml IV .BOLUS 07/14/16 19:31 Nasogastric Orogastric Tube Insertion [OM.PC] Routine 07/14/16 19:34 Patient Status Manage Transfer [TRANSFER] Routine 07/14/16 19:35 Patient Status [ADT] Routine Oxygen Therapy [RC] PRN Up to Chair [RC] ASDIRECTED VTE/DVT Education [RC] PER UNIT ROUTINE Vital Signs [RC] Q4H HYDROmorphone [Dilaudid] 0.5 mg IVPUSH Q2H PRN Ondansetron [Zofran] 4 mg IV Q6H PRN Resuscitation Status Routine 07/14/16 19:45 Sodium Chloride 0.9% [Normal Saline] 1,000 ml IV ASDIRECTED 07/14/16 20:00 cefTRIAXone [Rocephin] 1 gm IVPUSH Q24H 07/15/16 05:11 CBC WITH AUTO DIFF [HEME] AM COMPREHENSIVE METABOLIC PN,CMP [CHEM] AM 07/15/16 Breakfast Nothing per Oral Now Diet [DIET] - Assessment/Plan Last 24 Hours: My Active Orders 07/14/16 19:00 Sodium Chloride 0.9% [Normal Saline] 500 ml IV .BOLUS 07/14/16 19:31 Nasogastric Orogastric Tube Insertion [OM.PC] Routine 07/14/16 19:34 Patient Status Manage Transfer [TRANSFER] Routine 07/14/16 19:35 Patient Status [ADT] Routine Oxygen Therapy [RC] PRN Up to Chair [RC] ASDIRECTED VTE/DVT Education [RC] PER UNIT ROUTINE Vital Signs [RC] Q4H HYDROmorphone [Dilaudid] 0.5 mg IVPUSH Q2H PRN Ondansetron [Zofran] 4 mg IV Q6H PRN Resuscitation Status Routine 07/14/16 19:45 Sodium Chloride 0.9% [Normal Saline] 1,000 ml IV ASDIRECTED 07/14/16 20:00 cefTRIAXone [Rocephin] 1 gm IVPUSH Q24H 07/15/16 05:11 CBC WITH AUTO DIFF [HEME] AM COMPREHENSIVE METABOLIC PN,CMP [CHEM] AM 07/15/16 Breakfast Nothing per Oral Now Diet [DIET] Assessment:: 1. abdominal pain 2. severe ileus 3. urinary tract infection Plan: 1. admit to Dr Emre Singleton 2. NGT to low intermittent suction 3. dilaudid/zofran 4. IVF NS @125cc/hr 5. rocephin 1g IV QD for UTI
[2016-07-14] MEDS ORDERED: HYDROmorphone 1 MG/ML Syringe IVPUSH ONE (19:33)
[2016-07-14] MEDS ORDERED: Ondansetron 4 MG/2 ML SDV IV PRN (19:35)
[2016-07-14] MEDS ORDERED: HYDROmorphone 2 MG/ML SDV IVPUSH PRN (19:35)
[2016-07-14 19:39] LABS: CHLORIDE,CL 101 mmol/L (98-115); SODIUM,NA 140 mmol/L (136-145)
[2016-07-14] MEDS ORDERED: Sodium Chloride 0.9% 1,000 ML IV SCH (19:45)
[2016-07-14] MEDS: cefTRIAXone 1 GM Vial IVPUSH SCH (21:18)
[2016-07-14] MEDS: Metoclopramide 10 MG/2 ML SDV IVPUSH SCH (21:19)
[2016-07-14] MEDS: Sodium Chloride 0.9% with KCl 1,000 ML IV SCH (21:22)
[2016-07-15] MEDS: Metoclopramide 10 MG/2 ML SDV IVPUSH SCH ×4 (02:00→20:24)
[2016-07-15] MEDS: Sodium Chloride 0.9% with KCl 1,000 ML IV SCH ×3 (05:14→21:35)
--- NOTE | 2016-07-15 10:52 | PCM.HP ---
H&P History of Present Illness - General Date of Service: 07/15/16 Source of Information: Old Records, RN History Limitations: Reports: Other (Nonverbal due to dementia) - History of Present Illness Initial Comments - Free Text/Narative: Patient presented for outpatient CT of the abdomen and pelvis as she had been complaining of abdominal pain, vomiting, and distention for the past [address] revealed "Diffuse gas and fluid distention of colon and to a slightly less extent small bowel which I feel is most consistent with a diffuse ileus as discussed above. Any findings clinically to suggest gastroenteritis or the like? ". Initially WBC slightly elevated at 10.9 with a left shift. Hydration status appeared to be stable. UA showed moderate bacteria. Patient was admitted for further treatment and monitoring. The patient has severe dementia. She has a recent history of ileus and a past history of bowel obstruction and chronic loose stools. Patient is a residential resident. - Related Data Allergies/Adverse Reactions: Allergies Allergy/AdvReac Type Severity Reaction Status Date / Time INDU Inhibitors Allergy Cannot Verified 07/14/16 19:25 Remember grapefruit Allergy Cannot Verified 07/14/16 19:25 Remember Home Medications: Home Meds Acetaminophen 650 mg PO TID@0800,1200,1800 10/22/14 [History] Acetaminophen [Pain Relief] 650 mg PO Q6H PRN 10/22/14 [History] Bisacodyl [Dulcolax] 10 mg RECTAL DAILY PRN 10/22/14 [History] Cholecalciferol (Vitamin D3) [Vitamin D3] 2,000 unit PO DAILY 10/22/14 [History] Donepezil HCl 10 mg PO DAILY 10/22/14 [History] Magnesium Hydroxide [Milk of Magnesia] 30 ml PO DAILY PRN 10/22/14 [History] Aspirin 81 mg PO DAILY 06/06/16 [History] Loratadine 10 mg PO 1800 06/06/16 [History] Menthol/Camphor [Sarna Anti-Itch] 1 applic TOP BID 06/06/16 [History] Sennosides [Senna] 1 tab PO BID@0800,1800 06/06/16 [History] Lactulose 20 gm PO DAILY 07/14/16 [History] Metoclopramide [Reglan] 5 mg PO BID@0700,1700 07/14/16 [History] Na Phos,M-B/Na Phos,DI-B [Fleet Enema] 118 ml RC DAILY PRN 07/14/16 [History] Past Medical History Gastrointestinal History: Reports: Chronic Constipation, Other (See Below) Other Gastrointestinal History: abdominal pain and distention x 2 days Genitourinary History: Reports: Urinary Incontinence Other Genitourinary History: CKD Stage 3. 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 transfers with EZ- stand Neurological History: Reports: Alzheimers Disease Psychiatric History: Reports: Alzheimers Disease, Dementia, Depression Endocrine/Metabolic History: Reports: Diabetes, Type II Social & Family History - Family History Family Medical History: Noncontributory - Tobacco Use Smoking Status *Q: Current Status Unknown Second Hand Smoke Exposure: No - Caffeine Use Caffeine Use: Reports: None - Recreational Drug Use Recreational Drug Use: No H&P Review of Systems - Review of Systems: Review Of Systems: Unable To Obtain Exam - Exam Exam: See Below - Vital Signs Vital Signs: Last Vital Signs Temp 97.5 F 07/15/16 06:45 Pulse 86 07/15/16 06:45 Resp 16 07/15/16 06:45 BP 138/69 07/15/16 06:45 Pulse Ox 93 L 07/15/16 06:45 Weight: 170 lb - Exam Quality Assessment: DVT Prophylaxis (Lovenox). No: Supplemental Oxygen General: Other (Nonverbal). No: Alert, Oriented Lungs: Clear to Auscultation, Normal Respiratory Effort Cardiovascular: Regular Rate, Regular Rhythm, Normal S1, Normal S2 Abdomen: Distention (moderate), Hyperactive Bowel Sounds, Tympanic Bowel Sounds. No: Guarding, Rigidity, Tenderness Extremities: No: Edema Skin: Warm, Dry Neuro Extensive - Mental Status: No: Alert, Oriented x3, Memory Intact - Patient Data Lab Results last 24 hrs: Laboratory Results - last 24 hr 07/15/16 07/15/16 07/15/16 Range/Units 07:25 07:25 07:25 WBC 10.4 H (5.0-10.0) 10^3/uL RBC 3.59 L (3.80-5.50) 10^6/uL Hgb 11.1 L (12.0-16.0) g/dL Hct 32.1 L (37.0-47.0) % MCV 89.2 (82.0-92.0) fL MCH 30.8 (27.0-31.0) pg MCHC 34.6 (32.0-36.0) g/dL RDW 13.4 (11.5-14.5) % Plt Count 187 (150-300) 10^3/uL MPV 8.7 (7.4-10.4) fL Neut % (Auto) 71.4 H (50.0-70.0) % Lymph % (Auto) 14.7 L (20.0-40.0) % [place] % (Auto) 10.4 H (2.0-8.0) % Eos % (Auto) 3.5 H (1.0-3.0) % Baso % (Auto) 0.0 (0.0-1.0) % Neut # (Auto) 7.4 H (2.5-7.0) 10^3/uL Lymph # (Auto) 1.5 (1.0-4.0) 10^3/uL [place] # (Auto) 1.1 H (0.1-0.8) 10^3/uL Eos # (Auto) 0.4 H (0.1-0.3) 10^3/uL Baso # (Auto) 0.0 (0.0-0.1) 10^3/uL Sodium 143 (136-145) mmol/L Potassium 4.1 (3.3-5.3) mmol/L Chloride 108 (98-115) mmol/L Carbon Dioxide 24.1 (21.0-32.0) mmol/L BUN 11 (6-25) mg/dL Creatinine 0.95 (0.51-1.17) mg/dL Est Cr Clr Drug Dosing 38.75 mL/min Estimated GFR (MDRD) 56 mL/min Glucose 146 H (70-110) mg/dL Calcium 8.4 L (8.7-10.3) mg/dL Magnesium 1.8 (1.8-2.4) mg/dL Total Bilirubin 0.6 (0.2-1.0) mg/dL AST 15 (15-37) U/L ALT 17 (12-78) U/L Alkaline Phosphatase 52 (46-116) IU/L Total Protein 6.9 (6.4-8.2) g/dL Albumin 3.08 (3.00-4.80) g/dL Result Diagrams: 07/15/16 07:25 07/15/16 07:25 *Q Meaningful Use (ADM) - VTE *Q VTE Criteria *Q: - Stroke *Q Stroke Criteria *Q: - AMI *Q AMI Criteria *Q: Problem List Initiated/Reviewed/Updated: Yes Orders Last 24hrs: Active Orders 24 hr Category Date Time Status CXR [Chest 1V Frontal] [CR] Routine Exams 07/15/16 10:24 Ordered CULTURE URINE [RM] Routine Lab 07/14/16 19:00 Results Clostridium Difficile [CDIFF TOX A+B] [OP] Stat Lab 07/14/16 19:55 Uncollected Enoxaparin [Lovenox] Med 07/15/16 10:15 Active 40 mg SUBCUT DAILY Erythromycin Base [Hemanth-Tab] Med 07/15/16 09:00 Active 250 mg PO BID Metoclopramide [Reglan] Med 07/14/16 20:00 Active 10 mg IVPUSH Q6H Sodium Chloride 0.9% with KCl [Normal Saline with 40 Med 07/14/16 20:00 Active mEq KCl] 1,000 ml IV ASDIRECTED cefTRIAXone [Rocephin] Med 07/14/16 20:00 Active 1 gm IVPUSH Q24H Medication Orders Ceftriaxone Sodium (Rocephin) 1 gm IVPUSH Q24H [facility] Last Admin: 07/14/16 21:18 Dose: 1 gm Enoxaparin Sodium (Lovenox) 40 mg SUBCUT DAILY [facility] Erythromycin (Hemanth-Tab) 250 mg PO BID [facility] Hydromorphone HCl (Dilaudid) 0.5 mg IVPUSH Q2H PRN PRN Reason: Pain (severe 7-10) Sodium Chloride (Normal Saline) 500 mls @ 999 mls/hr IV .BOLUS [facility] Last Admin: 07/14/16 19:12 Dose: 999 mls/hr Potassium Chloride/Sodium Chloride (Normal Saline With 40 Meq Kcl) 1,000 mls @ 125 mls/hr IV ASDIRECTED [facility] Last Admin: 07/15/16 05:14 Dose: 125 mls/hr Infusion: 07/15/16 05:14 Dose: 125 mls/hr Admin: 07/14/16 21:22 Dose: 125 mls/hr Metoclopramide HCl (Reglan) 10 mg IVPUSH Q6H JAMES Last Admin: 07/15/16 08:07 Dose: 10 mg Admin: 07/15/16 02:00 Dose: 10 mg Admin: 07/14/16 21:19 Dose: 10 mg Assessment/Plan Comment:: PRIMARY ASSESSMENT/PLAN: Severe ileus, unknown etiology, rule out infectious process. Obstruction ruled out. WBC 10.4 with slight left shift. Stool for Cdiff ordered-needs collection. Continue relgan 10 mg IV q6 hours. Add erythromycin 250 mg po BID to improve GI motility. Continue NG to LIS. Keep NPO. Continue IVFs. Will hold oral medications. Electrolyte disturbances. Hypokalemia, improving. K 4.1. Continue IVF of NS with 40 mEq of potassium at 125 mL/hr. Repeat BMP in AM. Magnesium level low end of normal at 1.8. Will continue to monitor. UTI. UA revealed moderate bacteria and trace blood. Urine culture pending. Continue IV rocephin. SECONDARY ASSESSMENT/PLAN: Hypertension, stable. Not on medication for this. Severe dementia, non-verbal. Depression. Insomnia. Constipation. Continue lactulose. CKD stage 3. History of recent ileus. DVT prophylaxis. Lovenox. Overall plan: Continue with IVFs and NG tube. Repeat labs in the AM. Plan of care reviewed with Dr. Andrea. He is in agreement with the plan of care.
[2016-07-15] MEDS ORDERED: Bisacodyl 10 MG Supp RECTAL PRN (11:03)
[2016-07-15] MEDS: Enoxaparin 40 MG/0.4 ML Syringe SUBCUT SCH (11:47)
[2016-07-15] MEDS: Erythromycin Base 250 MG Cap.CR PO SCH ×2 (12:50→20:24)
[2016-07-15] MEDS: cefTRIAXone 1 GM Vial IVPUSH SCH (20:24)
[2016-07-16] MEDS: Metoclopramide 10 MG/2 ML SDV IVPUSH SCH ×4 (01:40→20:11)
[2016-07-16] MEDS: Sodium Chloride 0.9% with KCl 1,000 ML IV SCH (05:29)
[2016-07-16 08:28] LABS: CHLORIDE,CL 106 mmol/L (98-115); SODIUM,NA 139 mmol/L (136-145)
[2016-07-16] MEDS ORDERED: Magnesium Sulfate/Water 50 ML IV ONE (09:00)
[2016-07-16] MEDS: D5 1/2 NS w/ 40 mEq/L KCl 1,000 ML IV SCH ×2 (09:25→21:20)
[2016-07-16] MEDS: Lactulose Soln 10 GM/15 ML 30 ML UD Cup PO SCH (09:57)
[2016-07-16] MEDS: Erythromycin Base 250 MG Cap.CR PO SCH ×2 (09:57→20:04)
[2016-07-16] MEDS: Enoxaparin 40 MG/0.4 ML Syringe SUBCUT SCH (09:57)
--- NOTE | 2016-07-16 16:56 | DISCH ---
PATIENT PROFILE: The patient is an 81-year-old patient from the [facility] in [place], [place]. She was admitted yesterday because of huge abdominal distention and bloating. She was previously in the hospital with similar complaints. After being seen in the emergency room, the patient had a CT of the abdomen and pelvis, which was ordered from the clinic. The CT was performed because of abdominal pain, vomiting, and distention for the last [address] showed diffuse gas and fluid distention of the colon and to a slightly lesser extent small bowel, which I feel is most consistent with a diffuse ileus. The patient's white count was slightly elevated to 10.9. Hydration status is stable. She was admitted to hospital for further treatment. PHYSICAL EXAMINATION: GENERAL: Today, the patient is alert and does not communicate very well, that is her baseline status. VITAL SIGNS: Her temperature is 97.3, pulse is 73, blood pressure 118/38. She is alert. It is difficult to assess her orientation to space, time, and person. HEAD: Negative. EYES: Normal. THROAT: Slight dryness of the mucous membranes. NECK: Supple. HEART AND LUNGS: Stable. ABDOMEN: Soft, softer than yesterday. Bowel sounds are actively present. EXTREMITIES: Normal. NEUROLOGIC: Intact. Her intake and output indicate that total intake was 1017. Nasogastric output was 950 mL, from yesterday. Through the night, it was 300 mL. LABORATORY DATA: Her hemoglobin is 11.2 and white count 7.1 with normal electrolytes. BUN and creatinine were also normal. FINAL DIAGNOSES: Persistent abdominal distention with no evidence of obstruction being found. Severe ileus. Exact cause is not known. The patient's electrolytes are normal. I did also add magnesium just to be on the safe side. PLAN: Plan will be to cut her IV fluids down to 100 mL/h. Add 40 mEq of potassium. She is on Reglan. We also started her on lactulose. She received Rocephin yesterday. I do not think that she has any infective process, however, Clostridium difficile toxin and enterotoxin is being checked. We will continue to monitor closely. /[id number]/MODL MTDD
[2016-07-16] MEDS: cefTRIAXone 1 GM Vial IVPUSH SCH (20:03)
[2016-07-17] MEDS: Metoclopramide 10 MG/2 ML SDV IVPUSH SCH ×4 (01:49→19:36)
[2016-07-17] MEDS: D5 1/2 NS w/ 40 mEq/L KCl 1,000 ML IV SCH (07:23)
[2016-07-17] MEDS: Erythromycin Base 250 MG Cap.CR PO SCH ×2 (10:18→21:08)
[2016-07-17] MEDS: Enoxaparin 40 MG/0.4 ML Syringe SUBCUT SCH (10:18)
[2016-07-17] MEDS: Lactulose Soln 10 GM/15 ML 30 ML UD Cup PO SCH (10:18)
[2016-07-17] MEDS ORDERED: D5 1/2 NS w/ 40 mEq/L KCl 1,000 ML IV SCH (11:00)
[2016-07-17] MEDS: cefTRIAXone 1 GM Vial IVPUSH SCH (19:35)
[2016-07-18] MEDS: Metoclopramide 10 MG/2 ML SDV IVPUSH SCH ×4 (01:50→20:39)
[2016-07-18] MEDS: Enoxaparin 40 MG/0.4 ML Syringe SUBCUT SCH (08:45)
[2016-07-18] MEDS: Lactulose Soln 10 GM/15 ML 30 ML UD Cup PO SCH (08:45)
[2016-07-18] MEDS: Erythromycin Base 250 MG Cap.CR PO SCH ×2 (08:45→20:39)
--- NOTE | 2016-07-18 10:24 | PCM.PN ---
- General Info Date of Service: 07/18/16 Functional Status: Reports: tolerating diet, urinating - Review of Systems Systems Review Comment:: Patient is non-verbal. She does open her eyes to look at the person talking. Nursing report indicates patient's NG tube was removed per patient last night around 2100. Patient has tolerated clear liquid diet well without vomiting. Rectal tube has produced stool and patient is passing flatus. There have been no fevers. - Patient Data Vitals - most recent: Last Vital Signs Temp 96.8 F 07/18/16 06:33 Pulse 56 L 07/18/16 06:33 Resp 16 07/18/16 06:33 BP 123/59 L 07/18/16 06:33 Pulse Ox 96 07/18/16 06:33 Weight - most recent: 170 lb I&O - last 24 hours: Intake & Output 07/17/16 07/18/16 07/18/16 22:59 06:59 14:59 Intake Total 472 1100 Output Total 1385 Balance 472 -285 Lab Results last 24 hrs: Laboratory Results - last 24 hr 07/18/16 Range/Units 08:30 Sodium 139 (136-145) mmol/L Potassium 4.8 (3.3-5.3) mmol/L Chloride 105 (98-115) mmol/L Carbon Dioxide 20.9 L (21.0-32.0) mmol/L BUN 8 (6-25) mg/dL Creatinine 0.97 (0.51-1.17) mg/dL Est Cr Clr Drug Dosing 37.95 mL/min Estimated GFR (MDRD) 55 mL/min Glucose 131 H (70-110) mg/dL Calcium 8.9 (8.7-10.3) mg/dL Med Orders - Current: Current Medications Bisacodyl (Dulcolax) 10 mg RECTAL DAILY PRN PRN Reason: Constipation Enoxaparin Sodium (Lovenox) 40 mg SUBCUT DAILY [facility] Last Admin: 07/18/16 08:45 Dose: 40 mg Erythromycin (Hemanth-Tab) 250 mg PO BID [facility] Last Admin: 07/18/16 08:45 Dose: 250 mg Hydromorphone HCl (Dilaudid) 0.5 mg IVPUSH Q2H PRN PRN Reason: Pain (severe 7-10) Potassium Chloride/Dextrose/Sod Cl (D5 1/2 Ns W/ 40 Meq/L Kcl) 1,000 mls @ 70 mls/hr IV ASDIRECTED [facility] Last Admin: 07/17/16 21:06 Dose: 70 mls/hr Lactulose (Cephulac) 20 gm PO DAILY [facility] Last Admin: 07/18/16 08:45 Dose: 20 gm Metoclopramide HCl (Reglan) 10 mg IVPUSH Q6H [facility] Last Admin: 07/18/16 08:45 Dose: 10 mg Discontinued Medications Ceftriaxone Sodium (Rocephin) 1 gm IVPUSH Q24H [facility] Last Admin: 07/17/16 19:35 Dose: 1 gm Hydromorphone HCl (Dilaudid) 0.5 mg IVPUSH ONETIME ONE Stop: 07/14/16 19:34 Last Admin: 07/14/16 19:58 Dose: 0.5 mg Sodium Chloride (Normal Saline) 500 mls @ 999 mls/hr IV .BOLUS [facility] Last Admin: 07/14/16 19:12 Dose: 999 mls/hr Sodium Chloride (Normal Saline) 1,000 mls @ 125 mls/hr IV ASDIRECTED [facility] Potassium Chloride/Sodium Chloride (Normal Saline With 40 Meq Kcl) 1,000 mls @ 125 mls/hr IV ASDIRECTED [facility] Last Admin: 07/16/16 05:29 Dose: 125 mls/hr Magnesium Sulfate (Magnesium Sulfate 2 Gm In Water 50 Ml) 50 mls @ 150 mls/hr IV ONETIME ONE Stop: 07/16/16 09:19 Last Admin: 07/16/16 11:14 Dose: 150 mls/hr Potassium Chloride/Dextrose/Sod Cl (D5 1/2 Ns W/ 40 Meq/L Kcl) 1,000 mls @ 70 mls/hr IV ASDIRECTED [facility] Last Admin: 07/17/16 07:23 Dose: 100 mls/hr Ondansetron HCl (Zofran) 4 mg IVPUSH ONETIME ONE Stop: 07/14/16 19:01 Last Admin: 07/14/16 19:24 Dose: 4 mg Ondansetron HCl (Zofran) 4 mg IV Q6H PRN PRN Reason: Nausea/Vomiting - Exam Quality Assessment: urine catheter (clear yellow returns), DVT prophylaxis ( Lovenox). No: supplemental oxygen General: alert, no acute distress. No: oriented Lungs: Clear to auscultation, Normal respiratory effort. No: Crackles, Rales, Rhonchi Cardiovascular: Regular Rate, Regular Rhythm, No Murmurs Abdomen: bowel sounds present (active x 4), soft, no tenderness, no distension, other (rectal tube reveals brown liquid stool). No: rigidity Skin: warm, dry Psy/Mental Status: alert. No: anxious, agitated - Problem List Review Problem List Initiated/Reviewed/Updated: Yes - My Orders Last 24 Hours: My Active Orders 07/18/16 04:43 Communication Order [RC] DAILY 07/18/16 09:47 Communication Order [RC] ROUTINE 07/18/16 Lunch Full Liquid Diet [DIET] - Plan Plan:: PRIMARY ASSESSMENT/PLAN: Severe ileus, unknown etiology. Obstruction & infectious processes have been ruled out. Cdiff negative. WBC in the normal range. NG tube has been discontinued. Discontinue rectal tube. Continue oral erythromycin and IV reglan. Increase to full liquid diet. Decrease IVF of D51/2NS with 40 KCL to 50 mL/hr. Total intake should be around 1500. Electrolyte disturbances. Hypokalemia, resolved. K 4.8. Continue with IVF with potassium. Borderline low magnesium. Will add magnesium oxide 500 mg daily. Asymptomatic UTI. 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 Discontinue IV rocephin. Oral erythromycin will cover this. Continue sanders for 1 more day. SECONDARY ASSESSMENT/PLAN: History of hypertension. BP 123/59. Severe dementia, non-verbal. Depression. Insomnia. Constipation. Continue lactulose. CKD stage 3. GFR 55. History of recent ileus. DVT prophylaxis. Lovenox. Overall plan: Increase diet to full liquids. Continue to monitor I & O. Continue to monitor for abdominal pain & distention. Plan of care reviewed with Dr. Andrea. He is in agreement with the plan of care.
[2016-07-18] MEDS: D5 1/2 NS w/ 40 mEq/L KCl 1,000 ML IV SCH (11:15)
[2016-07-18] MEDS: Magnesium Oxide 500 MG Tab PO SCH (12:29)
[2016-07-19] MEDS: Metoclopramide 10 MG/2 ML SDV IVPUSH SCH ×2 (01:45→08:07)
[2016-07-19] MEDS: D5 1/2 NS w/ 40 mEq/L KCl 1,000 ML IV SCH (05:45)
[2016-07-19] MEDS: Enoxaparin 40 MG/0.4 ML Syringe SUBCUT SCH (08:07)
[2016-07-19] MEDS: Erythromycin Base 250 MG Cap.CR PO SCH ×2 (08:07→20:40)
[2016-07-19] MEDS: Lactulose Soln 10 GM/15 ML 30 ML UD Cup PO SCH (08:07)
[2016-07-19] MEDS: Magnesium Oxide 500 MG Tab PO SCH (08:23)
[2016-07-19] MEDS ORDERED: Cholecalciferol (Vitamin D3) 1,000 Unit Tab PO SCH (09:45)
[2016-07-19] MEDS: Dextrose 5%-0.45% NaCl 1,000 ML IV SCH (09:55)
[2016-07-19] MEDS: Potassium Chloride 20 MEQ Tab.ER PO SCH (10:04)
--- NOTE | 2016-07-19 10:49 | PCM.PN ---
- General Info Date of Service: 07/19/16 Functional Status: Reports: pain controlled, tolerating diet, urinating - Review of Systems Systems Review Comment:: Patient non-verbal due to dementia. When asked if her abdomen hurt she did respond "No". Nursing report notes that she has been tolerating a full liquid diet well. No vomiting or pain. She is having stools. - Patient Data Vitals - most recent: Last Vital Signs Temp 96.0 F 07/19/16 06:46 Pulse 66 07/19/16 06:46 Resp 20 07/19/16 06:46 BP 147/99 H 07/19/16 06:46 Pulse Ox 97 07/19/16 06:46 Weight - most recent: 170 lb I&O - last 24 hours: Intake & Output 07/18/16 07/19/16 07/19/16 22:59 06:59 14:59 Intake Total 797 432 Output Total 375 300 Balance 422 132 Med Orders - Current: Current Medications Bisacodyl (Dulcolax) 10 mg RECTAL DAILY PRN PRN Reason: Constipation Cholecalciferol (Vitamin D3) 2,000 units PO DAILY [facility] Last Admin: 07/19/16 10:04 Dose: 2,000 units Enoxaparin Sodium (Lovenox) 40 mg SUBCUT DAILY [facility] Last Admin: 07/19/16 08:07 Dose: 40 mg Erythromycin (Hemanth-Tab) 250 mg PO BID [facility] Last Admin: 07/19/16 08:07 Dose: 250 mg Hydromorphone HCl (Dilaudid) 0.5 mg IVPUSH Q2H PRN PRN Reason: Pain (severe 7-10) Dextrose/Sodium Chloride (Dextrose 5%-1/2 Ns) 1,000 mls @ 50 mls/hr IV ASDIRECTED [facility] Last Admin: 07/19/16 09:55 Dose: 50 mls/hr Lactulose (Cephulac) 20 gm PO DAILY [facility] Last Admin: 07/19/16 08:07 Dose: 20 gm Loratadine (Claritin) 10 mg PO DAILY@1800 [facility] Magnesium Oxide (Magnesium Oxide) 500 mg PO DAILY [facility] Last Admin: 07/19/16 08:23 Dose: 500 mg Metoclopramide HCl (Reglan) 5 mg PO BID@0700,1700 [facility] Potassium Chloride (Klor-Con M20) 20 meq PO DAILY [facility] Last Admin: 07/19/16 10:04 Dose: 20 meq Senna/Docusate Sodium (Senna Plus) 1 tab PO BID@0800,1800 [facility] Discontinued Medications Ceftriaxone Sodium (Rocephin) 1 gm IVPUSH Q24H [facility] Last Admin: 07/17/16 19:35 Dose: 1 gm Erythromycin (Hemanth-Tab) Confirm Administered Dose 250 mg .ROUTE .STK-MED ONE Stop: 07/18/16 20:37 Last Admin: 07/18/16 20:46 Dose: Not Given Hydromorphone HCl (Dilaudid) 0.5 mg IVPUSH ONETIME ONE Stop: 07/14/16 19:34 Last Admin: 07/14/16 19:58 Dose: 0.5 mg Sodium Chloride (Normal Saline) 500 mls @ 999 mls/hr IV .BOLUS [facility] Last Admin: 07/14/16 19:12 Dose: 999 mls/hr Sodium Chloride (Normal Saline) 1,000 mls @ 125 mls/hr IV ASDIRECTED [facility] Potassium Chloride/Sodium Chloride (Normal Saline With 40 Meq Kcl) 1,000 mls @ 125 mls/hr IV ASDIRECTED [facility] Last Admin: 07/16/16 05:29 Dose: 125 mls/hr Magnesium Sulfate (Magnesium Sulfate 2 Gm In Water 50 Ml) 50 mls @ 150 mls/hr IV ONETIME ONE Stop: 07/16/16 09:19 Last Admin: 07/16/16 11:14 Dose: 150 mls/hr Potassium Chloride/Dextrose/Sod Cl (D5 1/2 Ns W/ 40 Meq/L Kcl) 1,000 mls @ 70 mls/hr IV ASDIRECTED [facility] Last Admin: 07/17/16 07:23 Dose: 100 mls/hr Potassium Chloride/Dextrose/Sod Cl (D5 1/2 Ns W/ 40 Meq/L Kcl) 1,000 mls @ 70 mls/hr IV ASDIRECTED [facility] Last Admin: 07/17/16 21:06 Dose: 70 mls/hr Potassium Chloride/Dextrose/Sod Cl (D5 1/2 Ns W/ 40 Meq/L Kcl) 1,000 mls @ 50 mls/hr IV ASDIRECTED [facility] Last Admin: 07/19/16 05:45 Dose: 50 mls/hr Metoclopramide HCl (Reglan) 10 mg IVPUSH Q6H [facility] Last Admin: 07/19/16 08:07 Dose: 10 mg Ondansetron HCl (Zofran) 4 mg IVPUSH ONETIME ONE Stop: 07/14/16 19:01 Last Admin: 07/14/16 19:24 Dose: 4 mg Ondansetron HCl (Zofran) 4 mg IV Q6H PRN PRN Reason: Nausea/Vomiting - Exam Quality Assessment: urine catheter (Clear yellow returns-discontinuing today), DVT prophylaxis (Lovenox). No: supplemental oxygen General: alert, cooperative, no acute distress. No: oriented Lungs: Clear to auscultation, Normal respiratory effort Cardiovascular: Regular Rate, Regular Rhythm Abdomen: bowel sounds present, soft, no tenderness, no distension Skin: warm, dry Psy/Mental Status: alert, normal mood - Problem List Review Problem List Initiated/Reviewed/Updated: Yes - My Orders Last 24 Hours: My Active Orders 07/18/16 10:30 Magnesium Oxide 500 mg PO DAILY 07/19/16 09:45 Cholecalciferol (Vitamin D3) [Vitamin D3] 2,000 units PO DAILY Dextrose 5%-0.45% NaCl [Dextrose 5%-1/2 NS] 1,000 ml IV ASDIRECTED Potassium Chloride [Klor-Con M20] 20 meq PO DAILY 07/19/16 17:00 Metoclopramide [Reglan] 5 mg PO BID@0700,1700 07/19/16 18:00 Docusate Sodium/Sennosides [Senna Plus] 1 tab PO BID@0800,1800 Loratadine [Claritin] 10 mg PO DAILY@1800 07/20/16 05:11 BASIC METABOLIC PANEL,BMP [CHEM] AM MAGNESIUM [CHEM] AM - Plan Plan:: PRIMARY ASSESSMENT/PLAN: Severe ileus, unknown etiology, resolving. Obstruction & infectious processes have been ruled out. Increase diet to soft diet. Discontinue IV reglan. Restart home oral reglan and senna. Continue oral erythromycin. Change IV fluids to plain D51/2NS at 50 mL/hr. Patient's oral intake yesterday around 1240, so close to need of 1500. Electrolyte disturbances, resolving. Hypokalemia, resolved. Discontinue IV potassium. Add oral potassium 20 mEq daily. Repeat BMP in AM. Borderline low magnesium. Continue magnesium oxide 500 mg daily. Repeat Mg level in AM. Asymptomatic UTI. 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 Erythromycin will cover this. Discontinue sanders catheter. SECONDARY ASSESSMENT/PLAN: History of hypertension. Severe dementia, non-verbal. Hold aricept due to interaction with erythromycin. Depression. Insomnia. Constipation. Will restart home medications. CKD stage 3. History of recent ileus. DVT prophylaxis. Lovenox. Overall plan: Increase diet to soft. Restart oral medications. Continue to monitor I & O. Continue to monitor for abdominal pain & distention. Plan of care reviewed with Dr. Andrea. He is in agreement with the plan of care.
[2016-07-19] MEDS ORDERED: Metoclopramide 10 MG Tab ONE (17:07)
[2016-07-19] MEDS: Metoclopramide 5 MG Tab PO SCH (17:10)
[2016-07-19] MEDS ORDERED: Loratadine 10 MG Tab PO SCH (18:00)
[2016-07-20] MEDS: Dextrose 5%-0.45% NaCl 1,000 ML IV SCH ×2 (02:17→17:47)
[2016-07-20] MEDS ORDERED: Metoclopramide 10 MG/2 ML SDV IVPUSH ONE (05:59)
[2016-07-20] MEDS: Metoclopramide 5 MG Tab PO SCH (06:00)
--- NOTE | 2016-07-20 09:06 | PCM.PN ---
- General Info Date of Service: 07/20/16 Functional Status: Reports: urinating. Denies: tolerating diet - Review of Systems General: Denies: Fever Systems Review Comment:: Patient non-verbal due to dementia. Nursing report notes increased abdominal distention overnight. No vomiting. Held oral reglan and home pills. Held breakfast. Gave 1 time dose of reglan 10 mg IV this morning around 0600. Pharmacy reports that Reglan IV is backordered and they are unable to get any more at this time. - Patient Data Vitals - most recent: Last Vital Signs Temp 96.9 F 07/20/16 06:49 Pulse 79 07/20/16 06:49 Resp 20 07/20/16 06:49 BP 93/45 L 07/20/16 06:49 Pulse Ox 94 L 07/20/16 07:00 Weight - most recent: 170 lb I&O - last 24 hours: Intake & Output 07/19/16 07/20/16 07/20/16 22:59 06:59 14:59 Intake Total 728 400 Balance 728 400 Lab Results last 24 hrs: Laboratory Results - last 24 hr 07/20/16 Range/Units 07:20 Sodium 140 (136-145) mmol/L Potassium 3.9 (3.3-5.3) mmol/L Chloride 106 (98-115) mmol/L Carbon Dioxide 17.5 L (21.0-32.0) mmol/L BUN 11 (6-25) mg/dL Creatinine 0.95 (0.51-1.17) mg/dL Est Cr Clr Drug Dosing 38.75 mL/min Estimated GFR (MDRD) 56 mL/min Glucose 160 H (70-110) mg/dL Calcium 9.4 (8.7-10.3) mg/dL Magnesium 1.7 L (1.8-2.4) mg/dL Med Orders - Current: Current Medications Bisacodyl (Dulcolax) 10 mg RECTAL DAILY PRN PRN Reason: Constipation Enoxaparin Sodium (Lovenox) 40 mg SUBCUT DAILY [facility] Last Admin: 07/19/16 08:07 Dose: 40 mg Erythromycin (Hemanth-Tab) 250 mg PO BID [facility] Last Admin: 07/19/16 20:40 Dose: 250 mg Hydromorphone HCl (Dilaudid) 0.5 mg IVPUSH Q2H PRN PRN Reason: Pain (severe 7-10) Dextrose/Sodium Chloride (Dextrose 5%-1/2 Ns) 1,000 mls @ 80 mls/hr IV ASDIRECTED [facility] Lactulose (Cephulac) 20 gm PO DAILY [facility] Last Admin: 07/19/16 08:07 Dose: 20 gm Magnesium Oxide (Magnesium Oxide) 500 mg PO DAILY [facility] Last Admin: 07/19/16 08:23 Dose: 500 mg Potassium Chloride (Klor-Con M20) 20 meq PO DAILY [facility] Last Admin: 07/19/16 10:04 Dose: 20 meq Discontinued Medications Ceftriaxone Sodium (Rocephin) 1 gm IVPUSH Q24H [facility] Last Admin: 07/17/16 19:35 Dose: 1 gm Cholecalciferol (Vitamin D3) 2,000 units PO DAILY [facility] Last Admin: 07/19/16 10:04 Dose: 2,000 units Erythromycin (Hemanth-Tab) Confirm Administered Dose 250 mg .ROUTE .STK-MED ONE Stop: 07/18/16 20:37 Last Admin: 07/18/16 20:46 Dose: Not Given Hydromorphone HCl (Dilaudid) 0.5 mg IVPUSH ONETIME ONE Stop: 07/14/16 19:34 Last Admin: 07/14/16 19:58 Dose: 0.5 mg Sodium Chloride (Normal Saline) 500 mls @ 999 mls/hr IV .BOLUS [facility] Last Admin: 07/14/16 19:12 Dose: 999 mls/hr Sodium Chloride (Normal Saline) 1,000 mls @ 125 mls/hr IV ASDIRECTED [facility] Potassium Chloride/Sodium Chloride (Normal Saline With 40 Meq Kcl) 1,000 mls @ 125 mls/hr IV ASDIRECTED [facility] Last Admin: 07/16/16 05:29 Dose: 125 mls/hr Magnesium Sulfate (Magnesium Sulfate 2 Gm In Water 50 Ml) 50 mls @ 150 mls/hr IV ONETIME ONE Stop: 07/16/16 09:19 Last Admin: 07/16/16 11:14 Dose: 150 mls/hr Potassium Chloride/Dextrose/Sod Cl (D5 1/2 Ns W/ 40 Meq/L Kcl) 1,000 mls @ 70 mls/hr IV ASDIRECTED [facility] Last Admin: 07/17/16 07:23 Dose: 100 mls/hr Potassium Chloride/Dextrose/Sod Cl (D5 1/2 Ns W/ 40 Meq/L Kcl) 1,000 mls @ 70 mls/hr IV ASDIRECTED [facility] Last Admin: 07/17/16 21:06 Dose: 70 mls/hr Potassium Chloride/Dextrose/Sod Cl (D5 1/2 Ns W/ 40 Meq/L Kcl) 1,000 mls @ 50 mls/hr IV ASDIRECTED [facility] Last Admin: 07/19/16 05:45 Dose: 50 mls/hr Dextrose/Sodium Chloride (Dextrose 5%-1/2 Ns) 1,000 mls @ 50 mls/hr IV ASDIRECTED [facility] Last Admin: 07/20/16 02:17 Dose: 50 mls/hr Loratadine (Claritin) 10 mg PO DAILY@1800 [facility] Last Admin: 07/19/16 17:09 Dose: 10 mg Metoclopramide HCl (Reglan) 10 mg IVPUSH Q6H [facility] Last Admin: 07/19/16 08:07 Dose: 10 mg Metoclopramide HCl (Reglan) 5 mg PO BID@0700,1700 [facility] Last Admin: 07/20/16 06:00 Dose: Not Given Metoclopramide HCl (Reglan) Confirm Administered Dose 10 mg .ROUTE .STK-MED ONE Stop: 07/19/16 17:08 Last Admin: 07/19/16 20:39 Dose: Not Given Metoclopramide HCl (Reglan) 10 mg IVPUSH ONETIME ONE Stop: 07/20/16 06:00 Last Admin: 07/20/16 06:24 Dose: 10 mg Ondansetron HCl (Zofran) 4 mg IVPUSH ONETIME ONE Stop: 07/14/16 19:01 Last Admin: 07/14/16 19:24 Dose: 4 mg Ondansetron HCl (Zofran) 4 mg IV Q6H PRN PRN Reason: Nausea/Vomiting Senna/Docusate Sodium (Senna Plus) 1 tab PO BID@0800,1800 [facility] Last Admin: 07/19/16 17:10 Dose: 1 tab - Exam Quality Assessment: DVT prophylaxis (Lovenox). No: supplemental oxygen, urine catheter General: alert, no acute distress. No: oriented Lungs: Clear to auscultation, Normal respiratory effort Cardiovascular: Regular Rate, Regular Rhythm Abdomen: tenderness, distension (moderate distention), abnormal bowel sounds ( tympanic, loud bowel sounds x 4). No: soft (firm), guarding Extremities: no edema Skin: warm, dry Psy/Mental Status: alert. No: anxious - Problem List Review Problem List Initiated/Reviewed/Updated: Yes - My Orders Last 24 Hours: My Active Orders 07/19/16 09:45 Potassium Chloride [Klor-Con M20] 20 meq PO DAILY 07/19/16 18:31 Communication Order [RC] TIDMEALS 07/20/16 08:33 NG [Nasogastric Orogastric Tube Insertion] [OM.PC] Routine Rectal Tube Insertion [OM.PC] Routine 07/20/16 08:38 Small Bowel w Serial Film [CR] Routine 07/20/16 08:45 Dextrose 5%-0.45% NaCl [Dextrose 5%-1/2 NS] 1,000 ml IV ASDIRECTED - Plan Plan:: PRIMARY ASSESSMENT/PLAN: Recurrent abdominal distention, question etiology. Re-insert NG tube to LIS and rectal tube. NPO. Hold oral pills. Hold erythromycin. Increase IVFs to 80 mL/ hr. Patient to have a thin barium small bowel follow through study after distention is relieved. Would like to continue IV reglan (patient received dose at 0600), but pharmacy reports there is a shortage and they are out of this medication. Will have to consider an alternative pending barium study. Recent severe ileus, unknown etiology. Infectious processes have been ruled out. See above plan. Electrolyte disturbances, resolved. Hypokalemia, resolved. K 3.9. Continue oral potassium-holding until after barium study. Borderline low magnesium. Mg 1.7. Pending barium study-will need to increase magnesium to 500 mg po BID. Asymptomatic UTI. 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 SECONDARY ASSESSMENT/PLAN: History of hypertension. Severe dementia, non-verbal. Depression. Insomnia. Constipation. CKD stage 3. GFR 56, BUN 11, creatinine 0.95. History of recent ileus. DVT prophylaxis. Lovenox. Overall plan: Patient will become NPO. NG tube and rectal tube will be re- inserted to relieve distention. She will have a barium small bowel follow through study to determine the cause of the distention. Plan of care reviewed with Dr. Andrea. He is in agreement with the plan of care.
[2016-07-20] MEDS: Enoxaparin 40 MG/0.4 ML Syringe SUBCUT SCH (10:17)
[2016-07-20] MEDS: Lactulose Soln 10 GM/15 ML 30 ML UD Cup PO SCH (10:44)
--- NOTE | 2016-07-20 11:49 | PN ---
07/17/2016 PATIENT NAME: MRASHA MCELROY SUBJECTIVE: This is an 81-year-old patient, who is seen today for followup. She was admitted because of abdominal distention. She is feeling a little bit better. She still has an NG tube to low intermittent suction. Her vital signs are stable. OBJECTIVE: VITAL SIGNS: Blood pressure is 146/67, respirations are 24, oxygen saturations 94%, and temperature 96.9. Intake and output, the patient had total of 2800 mL out and 66 mL in and total negative balance of 2134 mL in the last 24 hours. Nasogastric amount was only 60 mL through the night. FINAL DIAGNOSES: 1. Abdominal distention, question partial bowel obstruction. This has been rule out. I think she has ileus. This problem is also getting better. Plan would be to clamp NG tube and start her on full liquid diet today. We will see how she does. We also slow down her IVs. We will recheck her tomorrow with electrolytes etc. 2. Dementia, stable. 3. Lack of ambulation. Unfortunately, this is a problem for this patient. She does not ambulate. We will have to keep an eye on this situation. 4. Chronic kidney disease, stable. 5. Deep vein thrombosis prophylaxis, on Lovenox. /[id number]/[id number]
[2016-07-20] MEDS ORDERED: Metoclopramide 10 MG/2 ML SDV IVPUSH SCH (12:00)
[2016-07-21] MEDS: Dextrose 5%-0.45% NaCl 1,000 ML IV SCH (06:01)
[2016-07-21] MEDS: Enoxaparin 40 MG/0.4 ML Syringe SUBCUT SCH (10:02)
[2016-07-21] MEDS: Lactulose Soln 10 GM/15 ML 30 ML UD Cup PO SCH (10:03)
[2016-07-21] MEDS: Pantoprazole 40 MG Vial IVPUSH SCH (10:55)
--- NOTE | 2016-07-21 13:16 | PCM.PN ---
- General Info Date of Service: 07/21/16 Functional Status: Reports: new symptoms (Stomach soft, positive bowel tones,), other (Patient with severe dementia--very limited review of systems) - Review of Systems Gastrointestinal: Reports: Difficulty swallowing (Difficulty swallowing at times per family,), Other (Rectal tube). Denies: Vomiting (NG tube to LIS) Genitourinary: Reports: incontinence - Patient Data Vitals - most recent: Last Vital Signs Temp 97.5 F 07/21/16 06:03 Pulse 81 07/21/16 06:03 Resp 18 07/21/16 06:03 BP 131/66 07/21/16 06:03 Pulse Ox 93 L 07/21/16 06:15 Weight - most recent: 170 lb I&O - last 24 hours: Intake & Output 07/20/16 07/21/16 07/21/16 22:59 06:59 14:59 Intake Total 628 652 Output Total 300 100 100 Balance 328 552 -100 Lab Results last 24 hrs: Laboratory Results - last 24 hr 07/21/16 Range/Units 07:20 Sodium 139 (136-145) mmol/L Potassium 3.7 (3.3-5.3) mmol/L Chloride 105 (98-115) mmol/L Carbon Dioxide 22.6 (21.0-32.0) mmol/L BUN 8 (6-25) mg/dL Creatinine 0.93 (0.51-1.17) mg/dL Est Cr Clr Drug Dosing 39.58 mL/min Estimated GFR (MDRD) 58 mL/min Glucose 147 H (70-110) mg/dL Calcium 9.1 (8.7-10.3) mg/dL Med Orders - Current: Current Medications Bisacodyl (Dulcolax) 10 mg RECTAL DAILY PRN PRN Reason: Constipation Enoxaparin Sodium (Lovenox) 40 mg SUBCUT DAILY [facility] Last Admin: 07/21/16 10:02 Dose: 40 mg Erythromycin (Hemanth-Tab) 250 mg PO BID [facility] Last Admin: 07/19/16 20:40 Dose: 250 mg Hydromorphone HCl (Dilaudid) 0.5 mg IVPUSH Q2H PRN PRN Reason: Pain (severe 7-10) Dextrose/Sodium Chloride (Dextrose 5%-1/2 Ns) 1,000 mls @ 80 mls/hr IV ASDIRECTED [facility] Last Admin: 07/21/16 06:01 Dose: 80 mls/hr Lactulose (Cephulac) 20 gm PO DAILY [facility] Last Admin: 07/21/16 10:03 Dose: 20 gm Magnesium Oxide (Magnesium Oxide) 500 mg PO DAILY [facility] Last Admin: 07/19/16 08:23 Dose: 500 mg Pantoprazole Sodium (Protonix Iv) 40 mg IVPUSH DAILY [facility] Last Admin: 07/21/16 10:55 Dose: 40 mg Potassium Chloride (Klor-Con M20) 20 meq PO DAILY [facility] Last Admin: 07/19/16 10:04 Dose: 20 meq Discontinued Medications Ceftriaxone Sodium (Rocephin) 1 gm IVPUSH Q24H [facility] Last Admin: 07/17/16 19:35 Dose: 1 gm Cholecalciferol (Vitamin D3) 2,000 units PO DAILY [facility] Last Admin: 07/19/16 10:04 Dose: 2,000 units Erythromycin (Hemanth-Tab) Confirm Administered Dose 250 mg .ROUTE .STK-MED ONE Stop: 07/18/16 20:37 Last Admin: 07/18/16 20:46 Dose: Not Given Hydromorphone HCl (Dilaudid) 0.5 mg IVPUSH ONETIME ONE Stop: 07/14/16 19:34 Last Admin: 07/14/16 19:58 Dose: 0.5 mg Sodium Chloride (Normal Saline) 500 mls @ 999 mls/hr IV .BOLUS [facility] Last Admin: 07/14/16 19:12 Dose: 999 mls/hr Sodium Chloride (Normal Saline) 1,000 mls @ 125 mls/hr IV ASDIRECTED [facility] Potassium Chloride/Sodium Chloride (Normal Saline With 40 Meq Kcl) 1,000 mls @ 125 mls/hr IV ASDIRECTED [facility] Last Admin: 07/16/16 05:29 Dose: 125 mls/hr Magnesium Sulfate (Magnesium Sulfate 2 Gm In Water 50 Ml) 50 mls @ 150 mls/hr IV ONETIME ONE Stop: 07/16/16 09:19 Last Admin: 07/16/16 11:14 Dose: 150 mls/hr Potassium Chloride/Dextrose/Sod Cl (D5 1/2 Ns W/ 40 Meq/L Kcl) 1,000 mls @ 70 mls/hr IV ASDIRECTED [facility] Last Admin: 07/17/16 07:23 Dose: 100 mls/hr Potassium Chloride/Dextrose/Sod Cl (D5 1/2 Ns W/ 40 Meq/L Kcl) 1,000 mls @ 70 mls/hr IV ASDIRECTED [facility] Last Admin: 07/17/16 21:06 Dose: 70 mls/hr Potassium Chloride/Dextrose/Sod Cl (D5 1/2 Ns W/ 40 Meq/L Kcl) 1,000 mls @ 50 mls/hr IV ASDIRECTED [facility] Last Admin: 07/19/16 05:45 Dose: 50 mls/hr Dextrose/Sodium Chloride (Dextrose 5%-1/2 Ns) 1,000 mls @ 50 mls/hr IV ASDIRECTED [facility] Last Admin: 07/20/16 02:17 Dose: 50 mls/hr Loratadine (Claritin) 10 mg PO DAILY@1800 [facility] Last Admin: 07/19/16 17:09 Dose: 10 mg Metoclopramide HCl (Reglan) 10 mg IVPUSH Q6H [facility] Last Admin: 07/19/16 08:07 Dose: 10 mg Metoclopramide HCl (Reglan) 5 mg PO BID@0700,1700 [facility] Last Admin: 07/20/16 06:00 Dose: Not Given Metoclopramide HCl (Reglan) Confirm Administered Dose 10 mg .ROUTE .STK-MED ONE Stop: 07/19/16 17:08 Last Admin: 07/19/16 20:39 Dose: Not Given Metoclopramide HCl (Reglan) 10 mg IVPUSH ONETIME ONE Stop: 07/20/16 06:00 Last Admin: 07/20/16 06:24 Dose: 10 mg Ondansetron HCl (Zofran) 4 mg IVPUSH ONETIME ONE Stop: 07/14/16 19:01 Last Admin: 07/14/16 19:24 Dose: 4 mg Ondansetron HCl (Zofran) 4 mg IV Q6H PRN PRN Reason: Nausea/Vomiting Senna/Docusate Sodium (Senna Plus) 1 tab PO BID@0800,1800 [facility] Last Admin: 07/20/16 09:10 Dose: Not Given - Exam Quality Assessment: No: supplemental oxygen, urine catheter, restraints General: no acute distress, lethargic, other (Patient with severe dementia, nonverbal, family states she sleeps a lot) Neck: supple. No: no JVD Lungs: Clear to auscultation, Normal respiratory effort Cardiovascular: Regular Rate, Regular Rhythm Abdomen: bowel sounds present, soft, other (Clamp NG tube for abdominal assessment, good bowel tones, soft, no distention--100 mL out clear gastric contents past 8 hours) (Female) Exam: Deferred Extremities: no edema Neurological: sensation intact. No: normal speech Psy/Mental Status: other (Lethargic, tries to open eyes on verbal) - Problem List Review Problem List Initiated/Reviewed/Updated: Yes - My Orders Last 24 Hours: My Active Orders 07/21/16 10:00 Pantoprazole [ProTONIX IV] 40 mg IVPUSH DAILY - Plan Plan:: Updated today; afebrile, patient still not eating, reviewed intake from 48 hours ago patient eating up to 45 of meal--however due to increased abdominal distention NG tube was placed. NG tube remains in place with 100 mL out of gastric contents past 8 hours. Daughter in room, nasogastric tube clamped for abdominal assessment, adamant is soft, no distention, good bowel tones, pharmacy now has limited doses are Reglan--rectal tube in placed with some output, barium GI follow-through yesterday no obstruction PRIMARY ASSESSMENT/PLAN: Abdominal distention, much improved, good bowel tones, abdomen soft, clamp NG tube, barium follow-through shows no obstruction, Reglan 5 mg IV twice a day, continue with lactulose. Patient may benefit from upper normal limits potassium levels--add potassium via IV monitor closely UTI. 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 DVT prophylaxis. Lovenox. GI stress prophylaxis, Protonix 40 mg IV push daily Chronic problems History of hypertension. Severe dementia, non-verbal--no longer getting benefit from Aricept, discontinue , family agrees Depression. Story of Insomnia. Hx of constipation--with ED visits and hospitalization recently--with history of recent ileus CKD stage 3. GFR and creatinine fair-good Overall plan: Clamp nasogastric tube, push potassium levels to upper limits of normal help relieve GI distention, start back on Reglan, continue with IV maintenance fluids until we can appreciate adequate oral fluids. Add IV Protonix May be able to pull rectal tube and/or nasogastric tube in the a.m. Discontinue Arricept
[2016-07-21] MEDS: Metoclopramide 10 MG/2 ML SDV IVPUSH SCH ×2 (14:30→21:10)
[2016-07-21] MEDS: D5 1/2 NS w/ 40 mEq/L KCl 1,000 ML IV SCH (14:30)
[2016-07-22] MEDS: D5 1/2 NS w/ 40 mEq/L KCl 1,000 ML IV SCH ×2 (01:28→15:14)
[2016-07-22] MEDS: Enoxaparin 40 MG/0.4 ML Syringe SUBCUT SCH (09:00)
[2016-07-22] MEDS: Pantoprazole 40 MG Vial IVPUSH SCH (09:02)
[2016-07-22] MEDS: Lactulose Soln 10 GM/15 ML 30 ML UD Cup PO SCH (09:09)
[2016-07-22] MEDS: Magnesium Oxide 500 MG Tab PO SCH (09:11)
[2016-07-22] MEDS: Metoclopramide 10 MG/2 ML SDV IVPUSH SCH (09:17)
[2016-07-22] MEDS ORDERED: Potassium Bicarbonate/Potassium Chloride 25 MEQ Tab.Eff PO ONE (09:45)
[2016-07-22] MEDS: Potassium Chloride 20 MEQ Tab.ER PO SCH (09:47)
--- NOTE | 2016-07-22 10:47 | PCM.PN ---
- General Info Date of Service: 07/22/16 Functional Status: Reports: pain controlled, urinating, other (Complete review of systems unobtainable due to altered mental status Alzheimer's severe). Denies: tolerating diet, ambulating, new symptoms - Patient Data Vitals - most recent: Last Vital Signs Temp 97.4 F 07/22/16 06:02 Pulse 74 07/22/16 06:02 Resp 16 07/22/16 06:02 BP 129/53 L 07/22/16 06:02 Pulse Ox 96 07/22/16 06:55 Weight - most recent: 170 lb I&O - last 24 hours: Intake & Output 07/21/16 07/22/16 07/22/16 22:59 06:59 14:59 Intake Total 528 708 Output Total 300 80 Balance 228 628 Lab Results last 24 hrs: Laboratory Results - last 24 hr 07/22/16 07/22/16 Range/Units 08:10 08:10 WBC 10.8 H (5.0-10.0) 10^3/uL RBC 4.14 (3.80-5.50) 10^6/uL Hgb 11.8 L (12.0-16.0) g/dL Hct 36.8 L (37.0-47.0) % MCV 89.0 (82.0-92.0) fL MCH 28.5 (27.0-31.0) pg MCHC 32.1 (32.0-36.0) g/dL RDW 12.5 (11.5-14.5) % Plt Count 191 (150-300) 10^3/uL MPV 8.8 (7.4-10.4) fL Neut % (Auto) 66.5 (50.0-70.0) % Lymph % (Auto) 18.7 L (20.0-40.0) % Blanco % (Auto) 11.2 H (2.0-8.0) % Eos % (Auto) 3.4 H (1.0-3.0) % Baso % (Auto) 0.2 (0.0-1.0) % Neut # (Auto) 7.2 H (2.5-7.0) 10^3/uL Lymph # (Auto) 2.0 (1.0-4.0) 10^3/uL Blanco # (Auto) 1.2 H (0.1-0.8) 10^3/uL Eos # (Auto) 0.4 H (0.1-0.3) 10^3/uL Baso # (Auto) 0.0 (0.0-0.1) 10^3/uL Sodium 136 (136-145) mmol/L Potassium 4.1 (3.3-5.3) mmol/L Chloride 103 (98-115) mmol/L Carbon Dioxide 21.3 (21.0-32.0) mmol/L BUN 7 (6-25) mg/dL Creatinine 0.90 (0.51-1.17) mg/dL Est Cr Clr Drug Dosing 40.90 mL/min Estimated GFR (MDRD) 60 mL/min Glucose 141 H (70-110) mg/dL Calcium 9.0 (8.7-10.3) mg/dL Med Orders - Current: Current Medications Bisacodyl (Dulcolax) 10 mg RECTAL DAILY PRN PRN Reason: Constipation Enoxaparin Sodium (Lovenox) 40 mg SUBCUT DAILY [facility] Last Admin: 07/22/16 09:00 Dose: 40 mg Erythromycin (Hemanth-Tab) 250 mg PO BID [facility] Last Admin: 07/19/16 20:40 Dose: 250 mg Hydromorphone HCl (Dilaudid) 0.5 mg IVPUSH Q2H PRN PRN Reason: Pain (severe 7-10) Potassium Chloride/Dextrose/Sod Cl (D5 1/2 Ns W/ 40 Meq/L Kcl) 1,000 mls @ 65 mls/hr IV ASDIRECTED [facility] Lactulose (Cephulac) 20 gm PO DAILY [facility] Last Admin: 07/22/16 09:09 Dose: 20 gm Magnesium Oxide (Magnesium Oxide) 500 mg PO DAILY [facility] Last Admin: 07/22/16 09:11 Dose: 500 mg Metoclopramide HCl (Reglan) 10 mg PO BID [facility] Pantoprazole Sodium (Protonix Iv) 40 mg IVPUSH DAILY [facility] Last Admin: 07/22/16 09:02 Dose: 40 mg Discontinued Medications Ceftriaxone Sodium (Rocephin) 1 gm IVPUSH Q24H [facility] Last Admin: 07/17/16 19:35 Dose: 1 gm Cholecalciferol (Vitamin D3) 2,000 units PO DAILY [facility] Last Admin: 07/19/16 10:04 Dose: 2,000 units Erythromycin (Hemanth-Tab) Confirm Administered Dose 250 mg .ROUTE .STK-MED ONE Stop: 07/18/16 20:37 Last Admin: 07/18/16 20:46 Dose: Not Given Hydromorphone HCl (Dilaudid) 0.5 mg IVPUSH ONETIME ONE Stop: 07/14/16 19:34 Last Admin: 07/14/16 19:58 Dose: 0.5 mg Sodium Chloride (Normal Saline) 500 mls @ 999 mls/hr IV .BOLUS [facility] Last Admin: 07/14/16 19:12 Dose: 999 mls/hr Sodium Chloride (Normal Saline) 1,000 mls @ 125 mls/hr IV ASDIRECTED [facility] Potassium Chloride/Sodium Chloride (Normal Saline With 40 Meq Kcl) 1,000 mls @ 125 mls/hr IV ASDIRECTED [facility] Last Admin: 07/16/16 05:29 Dose: 125 mls/hr Magnesium Sulfate (Magnesium Sulfate 2 Gm In Water 50 Ml) 50 mls @ 150 mls/hr IV ONETIME ONE Stop: 07/16/16 09:19 Last Admin: 07/16/16 11:14 Dose: 150 mls/hr Potassium Chloride/Dextrose/Sod Cl (D5 1/2 Ns W/ 40 Meq/L Kcl) 1,000 mls @ 70 mls/hr IV ASDIRECTED [facility] Last Admin: 07/17/16 07:23 Dose: 100 mls/hr Potassium Chloride/Dextrose/Sod Cl (D5 1/2 Ns W/ 40 Meq/L Kcl) 1,000 mls @ 70 mls/hr IV ASDIRECTED [facility] Last Admin: 07/17/16 21:06 Dose: 70 mls/hr Potassium Chloride/Dextrose/Sod Cl (D5 1/2 Ns W/ 40 Meq/L Kcl) 1,000 mls @ 50 mls/hr IV ASDIRECTED [facility] Last Admin: 07/19/16 05:45 Dose: 50 mls/hr Dextrose/Sodium Chloride (Dextrose 5%-1/2 Ns) 1,000 mls @ 50 mls/hr IV ASDIRECTED [facility] Last Admin: 07/20/16 02:17 Dose: 50 mls/hr Dextrose/Sodium Chloride (Dextrose 5%-1/2 Ns) 1,000 mls @ 80 mls/hr IV ASDIRECTED [facility] Last Admin: 07/21/16 06:01 Dose: 80 mls/hr Potassium Chloride/Dextrose/Sod Cl (D5 1/2 Ns W/ 40 Meq/L Kcl) 1,000 mls @ 80 mls/hr IV ASDIRECTED [facility] Last Admin: 07/22/16 01:28 Dose: 80 mls/hr Loratadine (Claritin) 10 mg PO DAILY@1800 [facility] Last Admin: 07/19/16 17:09 Dose: 10 mg Metoclopramide HCl (Reglan) 10 mg IVPUSH Q6H [facility] Last Admin: 07/19/16 08:07 Dose: 10 mg Metoclopramide HCl (Reglan) 5 mg PO BID@0700,1700 [facility] Last Admin: 07/20/16 06:00 Dose: Not Given Metoclopramide HCl (Reglan) Confirm Administered Dose 10 mg .ROUTE .STK-MED ONE Stop: 07/19/16 17:08 Last Admin: 07/19/16 20:39 Dose: Not Given Metoclopramide HCl (Reglan) 10 mg IVPUSH ONETIME ONE Stop: 07/20/16 06:00 Last Admin: 07/20/16 06:24 Dose: 10 mg Metoclopramide HCl (Reglan) 5 mg IVPUSH BID [facility] Last Admin: 07/22/16 09:17 Dose: 5 mg Ondansetron HCl (Zofran) 4 mg IVPUSH ONETIME ONE Stop: 07/14/16 19:01 Last Admin: 07/14/16 19:24 Dose: 4 mg Ondansetron HCl (Zofran) 4 mg IV Q6H PRN PRN Reason: Nausea/Vomiting Potassium Bicarb/Potassium Chloride (Potassium Chloride, Effervescent) 25 meq PO NOW ONE Stop: 07/22/16 09:46 Potassium Chloride (Klor-Con M20) 20 meq PO DAILY [facility] Last Admin: 07/22/16 09:47 Dose: Not Given Senna/Docusate Sodium (Senna Plus) 1 tab PO BID@0800,1800 [facility] Last Admin: 07/20/16 09:10 Dose: Not Given - Exam Quality Assessment: No: supplemental oxygen General: alert, no acute distress. No: oriented, sedated, lethargic Neck: supple Lungs: Clear to auscultation, Normal respiratory effort Cardiovascular: Regular Rate, Regular Rhythm Abdomen: soft, other (Hypotonic bowel tones). No: rigidity, guarding, distension (Female) Exam: Deferred Extremities: no edema Skin: warm, dry, intact Psy/Mental Status: alert - Problem List Review Problem List Initiated/Reviewed/Updated: Yes - My Orders Last 24 Hours: My Active Orders 07/21/16 10:00 Pantoprazole [ProTONIX IV] 40 mg IVPUSH DAILY 07/22/16 09:36 Nasogastric Orogastric Tube Removal [OM.PC] Routine Remove Rectal Tube [Rectal Tube Removal] [OM.PC] Routine 07/22/16 09:45 D5 1/2 NS w/ 40 mEq/L KCl 1,000 ml IV ASDIRECTED 07/22/16 21:00 Metoclopramide [Reglan] 10 mg PO BID 07/22/16 Lunch Full Liquid Diet [DIET] - Plan Plan:: Updated today; afebrile, patient still not eating, reviewed intake from 48 hours ago patient eating up to 45 of meal--however due to increased abdominal distention NG tube was placed. NG tube remains in place with 100 mL out of gastric contents past 8 hours. Daughter in room, nasogastric tube clamped for abdominal assessment, adamant is soft, no distention, good bowel tones, pharmacy now has limited doses are Reglan--rectal tube in placed with some output, barium GI follow-through yesterday no obstruction PRIMARY ASSESSMENT/PLAN: Updated today; patient more alert, no output on rectal tube, NG tube has been clamped 24 hours--was up in chair yesterday less sedated today in appearance Abdominal distention, much improved, hypotonic bowel tones, discontinue both rectal tube and nasogastric tube, barium follow-through shows no obstruction, place her back on oral Reglan suspension however increased to 10 mg twice a day or now. continue with lactulose. Any with maintenance IV with potassium however decrease rate to 65 mL per hour. 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 Lovenox. GI stress prophylaxis, Protonix 40 mg IV push daily Chronic problems History of hypertension. Severe dementia, non-verbal--no longer getting benefit from Aricept, discontinued, family agrees Depression. History of insomnia. Hx of constipation--with ED visits and hospitalization recently--with history of recent ileus CKD stage 3. GFR and creatinine fair-good Overall plan: As continue both rectal tube and nasogastric tube, advanced diet. Liquid, to chair today, place on oral suspension Reglan and increased dosages slightly. Continue with lactulose. Monitor for any abdominal distention, one- time oral potassium today. Decrease maintenance IV rate
[2016-07-22] MEDS: Metoclopramide Oral Soln 10 MG/10 ML UD Cup PO SCH (20:48)
[2016-07-23] MEDS: D5 1/2 NS w/ 40 mEq/L KCl 1,000 ML IV SCH (05:44)
[2016-07-23 07:00] VITALS: BP 128/61
[2016-07-23] MEDS: Lactulose Soln 10 GM/15 ML 30 ML UD Cup PO SCH (09:15)
[2016-07-23] MEDS: Enoxaparin 40 MG/0.4 ML Syringe SUBCUT SCH (09:17)
[2016-07-23] MEDS: Metoclopramide Oral Soln 10 MG/10 ML UD Cup PO SCH (09:18)
[2016-07-23] MEDS: Pantoprazole 40 MG Vial IVPUSH SCH (09:19)
[2016-07-23] MEDS: Erythromycin Base 250 MG Cap.CR PO SCH (09:25)
[2016-07-23] MEDS: Magnesium Oxide 500 MG Tab PO SCH (09:25)
--- NOTE | 2016-07-24 08:09 | DISCH ---
FINAL DIAGNOSIS: Diffused ileus, clinically improved, unknown etiology, doubtful infectious process, likely bacterial overgrowth, asymptomatic bacteriuria. Other chronic problems include severe dementia, discontinued Aricept, no longer getting benefit; hypertension; history of depression; history of insomnia; chronic kidney disease, stage 2/3; histories of multiple ED visits with constipation and ileus. BRIEF HISTORY: This 81-year-old patient who has a very poor quality of life due to severe dementia, came in on the day of admission. She had come into the ED for a CT of the abdomen and pelvis. She had been complaining of some abdominal pain, vomiting, and distention two days prior for this abdominal CT. The CT at that time demonstrated the patient to have diffuse gas and fluid distention of the colon, slightly due to a lesser extent the small bowel appeared consistent with a diffuse ileus. Her initial white count was 10.9, did have a left shift at that time. Her hydration status seemed to be stable; however, she was admitted to the hospital for further observation and treatment. The patient had previous ED visits due to impaction and ileus, which they were treated in the ED and released. She had orders to be given Reglan 5 mg b.i.d. and Fleet's enema as needed with Dulcolax suppositories along with milk of magnesia. HOSPITAL COURSE: Hospital course went fairly well although she did have an extended stay. She had periods where she would have ongoing abdominal distention and a nasogastric tube was placed for decompression that worked well. She had no complications with that. No aspiration. We had that on low wall intermittent suction. She did require a rectal tube for decompression, and those were both discontinued. About 48 hours prior to discharge, she seemed to slowly improve; however, her altered mental status made it more difficult to treat the patient. We did give her Reglan 5 mg b.i.d., we gave her this in injectable form; which she could tolerate oral, we gave her orally. We did give her Colace. We added erythromycin 250 mg p.o. b.i.d. to help improve GI motility. We hydrated her well. We corrected all electrolytes including potassium. She did have a urinary tract infection. We felt it was asymptomatic; however, due to her possible etiology, we did treat her with Rocephin. We also gave her lactulose. She did have a water-soluble small-bowel follow-through done, which showed no current evidence of bowel obstruction. There were no transition points noted. Eventually, we allowed her to start eating. She was slowly starting to get back to a baseline of her tolerable fluids. We increased her to full liquids. Through a rectal tube, she did have quite a bit of stool, however, that was slow and down 24-48 hours upon discharge. We corrected all electrolytes including magnesium. She was euvolemic. We monitored her vital signs, they were stable. Microbiology report did show negative C. diff. She did have urine culture which showed alpha hemolytic strep. She was treated with Rocephin. Vital signs were stable. Family was communicated as far as treatment plan. I did consult with both Medicine and GI at [facility], Dr. Iqbal in Medicine, felt like we were doing everything possible; however, he did feel like we should run the case by GI. I did call GI, spoke with nurse practitioner, Joie. She was in agreement with plan; however, she did recommend Cipro for 10 days b.i.d. for possible bacterial growth and maximizing her bowel regimen and ensuring all medications were discontinued that could potentiate any decrease in gastric motility. DISPOSITION: We feel like the patient can be discharged back to the [facility]. She has clinically improved. There is risk of her return. MEDICATIONS: Newly added medications will be Cipro 500 mg p.o. b.i.d. for 10 days for bacterial overgrowth, maximize Reglan 10 mg p.o. b.i.d., MiraLAX 17 g daily, senna as directed, and she can continue with Dulcolax and her Fleet enemas p.r.n. The patient will be released back to [facility]. Nurses are to report any further abdominal distention, nausea, vomiting, or abdominal pain, to be followed up at the next provider appointment date. CONSIDERATIONS AT FOLLOWUP: If the patient continues to have ongoing problems, she may need a gastric motility study. MEDICAL DECISION MAKIN minutes was spent on this discharge planning, consultation to GI and Medicine and [facility] along with social services director and pharmacy consultation. /[id number]/MODL
== END 2016-07-23 14:00 | DRG 389 ==
LOC: KA.ED 18:20 → KA.MS 19:35
PROVIDERS: ADMIT Physician Assistant Medical; ATTEND Family Medicine
DX: K56.7 Ileus, unspecified (principal); N39.0 Urinary tract infection, site not specified; N30.00 Acute cystitis without hematuria; R10.84 Generalized abdominal pain; B95.4 Other streptococcus as the cause of diseases classified elsewhere; R14.0 Abdominal distension (gaseous); I12.9 Hypertensive chronic kidney disease with stage 1 through stage 4 chronic kidney disease, or unspecified chronic kidney disease; N18.3 Chronic kidney disease, stage 3 (moderate); E11.22 Type 2 diabetes mellitus with diabetic chronic kidney disease; G70.9 Myoneural disorder, unspecified; G30.9 Alzheimer's disease, unspecified; F02.80 Dementia in other diseases classified elsewhere, unspecified severity, without behavioral disturbance, psychotic disturbance, mood disturbance, and anxiety; F32.9 Major depressive disorder, single episode, unspecified; E11.9 Type 2 diabetes mellitus without complications; E87.6 Hypokalemia; E83.42 Hypomagnesemia; Z79.899 Other long term (current) drug therapy; Z79.82 Long term (current) use of aspirin
CPT/HCPCS: 36415; 71010; 74177; 74250; 80048; 80053; 81001; 83690; 83735; 85025; 87086; 87088; 87324; 96361; 96374; 99285; A9270-GY; C9113; J0696; J1170; J1650; J2405; J2765; J3475; J3480; J7040; J7042